=== PATIENT | male | born 1965 | race Caucasian/White ===

== ENCOUNTER 2016-05-10 04:51 | Observation (INO) | payer BC, MEDICARE ==
[2016-05-02 10:23] LABS: HEMOGLOBIN 16.3 g/dL (13.6-17.8)
[2016-05-02 10:24] LABS: HEMATOCRIT 47.8 % (40.0-51.0)
[2016-05-02 10:37] LABS: BUN (BLOOD UREA NITROGEN) 11 MG/DL (6-23); CALCIUM, SERUM 8.3 MG/DL (8.5-10.4); CHLORIDE, SERUM 102 MMOL/L (96-112); CO2 (CARBON DIOXIDE) 31 MMOL/L (24-34); CREATININE 1.22 MG/DL (0.70-1.30); GFR AFRICAN AMERICAN 79 ML/MIN (>=60); GFR NON AFRICAN AMERICAN 68 ML/MIN (>=60); GLUCOSE, SERUM 99 MG/DL (60-99); POTASSIUM, SERUM 4.3 MMOL/L (3.5-5.3); SODIUM, SERUM 141 MMOL/L (135-148)
--- NOTE | ~2016-05-10 | OP ---
Record Of Operation [facility] [address] [place]. [address] NAME: SYED MORA : 61 STATUS : DIS Toma PAT#: [id number] AGE: 50 ADM/REG DATE : 05/10/16 MR#: [id number] REPORT SERV DATE: 05/11/16 DICTATED BY: MAKAYLA ROSENBERG II DATE: 05/11/16 REPORT STATUS : Draft TRANSCRIBED BY: MODL DATE: 05/11/16 DATE OF PROCEDURE: 05/10/2016 PREOPERATIVE DIAGNOSES: 1. C3-C4, C4-C5 adjacent segment degeneration. 2. History of C5-C7 fusion. 3. Upper extremity radiculopathy. 4. Stenosis C3-C4, C4-C5. POSTOPERATIVE DIAGNOSES: 1. C3-C4, C4-C5 adjacent segment degeneration. 2. History of C5-C7 fusion. 3. Upper extremity radiculopathy. 4. Stenosis C3-C4, C4-C5. PROCEDURE: 1. C3-C4, C4-C5 anterior interbody arthrodesis. 2. Application of prosthetic devices C3-C4, C4-C5. 3. Anterior instrumentation, C3-C4, C4-C5. 4. Use of the microscope. 5. Use of bone marrow aspirate and allograft substitute. SURGEON: Makayla Rosenberg MD FLUIDS: 1700 mL LR. ESTIMATED BLOOD LOSS: 20 mL. DRAINS: One drain. COMPLICATIONS: None. ANTIBIOTIC: Preoperatively. IMPLANTS: Alphatec. PREOPERATIVE HISTORY: This is a very friendly gentleman who did very well following his ACDF. He is now having recurrent neck and arm pain. DESCRIPTION OF PROCEDURE: After informed consent was obtained, the patient was brought to the operating room at his request and general anesthesia achieved. He was placed in the supine position and the neck and iliac crest were prepped and draped in a sterile fashion. A 5 mL of bone marrow were aspirated followed by longitudinal incision. The interval was explored. The deep cervical fascia incised. The subperiosteal exposure was completed and the Bobbin Coil Winder retractor was placed. The Celina pins were placed followed by use of the microscope. Record Of Operation [facility] [address] [place]. [address] NAME: SYED MORA : 61 STATUS : DIS Toma PAT#: [id number] AGE: 50 ADM/REG DATE : 05/10/16 MR#: [id number] REPORT SERV DATE: 05/11/16 DICTATED BY: MAKAYLA ROSENBERG II DATE: 05/11/16 REPORT STATUS : Draft TRANSCRIBED BY: GAGAN DATE: 05/11/16 Under microscopic visualization, the diskectomy was performed. The endplates were prepared following the removal of the disk. The parallel endplates were created and the posterior vertebral body osteophytes removed followed by removal of the posterior longitudinal ligament. The canal and foramen were well decompressed. At this point, the prosthetic device was then trialed and chosen and placed at C3-C4. This contained allograft substitute and bone marrow aspirate. Excellent fit was obtained. Next, the similar technique was performed at C4-C5. The diskectomy was completed and the endplates prepared with the ganga, curettes, and the high-speed edel. The posterior vertebral body osteophytes were removed followed by removal of the posterior longitudinal ligament. The canal and foramen were well decompressed followed by placement of the prosthetic device at C4-C5. The Celina pins were removed and the anterior fixation device placed with two screws placed in the C3, C4, and C5. This was a separate plate and screw construct. The fluoroscopy now confirmed acceptable placement of the implants. A deep drain was placed secondary to mild cancellous bone bleeding. At this point, standard closure was performed. The patient was then extubated and transferred to PACU in stable condition. FLORA/GAGAN Makayla Rosenberg II, M.D. / [id number] CC: Nam Vences II, M.D. Sonya Johnson, M.D.
[~2016-05-10 04:51] MED LIST: ACET500CAP PO; AMB10 PO; ASA5GR PO; COZ50 PO; CYMBALTA30 PO; DEPAKOTEER PO; ENDOCET1 TA3 PO; FLOMAX4 PO; LIPITOR10 PO; LOP25 PO; LYRICA100 MG PO; LYRICA200 MG PO; NEUR100 PO; NITROSTAT0.4 MG SL; PERCOCET1 TA4 PO; V5 PO; ZOL100 PO
[2016-05-11] MEDS ORDERED: ROXICODONE15 MG PO (11:52)
[2016-05-11] MEDS ORDERED: MSCONT15 PO (11:53)
== END 2016-05-11 12:23 | disposition home or self-care (01) ==
LOC: SDC 04:51 → 1SO 13:18
PROVIDERS: Orthopaedic Surgery
PROC: 0RG20K0 Fusion of 2 or more Cervical Vertebral Joints with Nonautologous Tissue Substitute, Anterior Approach, Anterior Column, Open Approach (ICD-10-PCS; 2016-05-10)
PROC: 0RB30ZZ Excision of Cervical Vertebral Disc, Open Approach (ICD-10-PCS; 2016-05-10)
PROC: 079T3ZX Drainage of Bone Marrow, Percutaneous Approach, Diagnostic (ICD-10-PCS; 2016-05-10)
PROC: 0RG20A0 Fusion of 2 or more Cervical Vertebral Joints with Interbody Fusion Device, Anterior Approach, Anterior Column, Open Approach (ICD-10-PCS; principal; 2016-05-10 07:00)
PROC: 0RG20J0 Fusion of 2 or more Cervical Vertebral Joints with Synthetic Substitute, Anterior Approach, Anterior Column, Open Approach (ICD-10-PCS; 2016-05-10 07:00)
DX: M48.02 Spinal stenosis, cervical region (principal); M50.121 Cervical disc disorder at C4-C5 level with radiculopathy; F41.9 Anxiety disorder, unspecified; F32.9 Major depressive disorder, single episode, unspecified; K21.9 Gastro-esophageal reflux disease without esophagitis; I10 Essential (primary) hypertension; M06.9 Rheumatoid arthritis, unspecified; F17.210 Nicotine dependence, cigarettes, uncomplicated; J44.9 Chronic obstructive pulmonary disease, unspecified; G47.33 Obstructive sleep apnea (adult) (pediatric); G43.909 Migraine, unspecified, not intractable, without status migrainosus; Z88.1 Allergy status to other antibiotic agents; Z79.899 Other long term (current) drug therapy; Z98.1 Arthrodesis status; Z98.890 Other specified postprocedural states; Z83.3 Family history of diabetes mellitus; Z82.3 Family history of stroke; Z82.49 Family history of ischemic heart disease and other diseases of the circulatory system; Z88.5 Allergy status to narcotic agent; Z87.442 Personal history of urinary calculi
CPT/HCPCS: 80048; 82962; 85014; 85018; 87641; 88304; 88311; 93005; 96374; 96375; 96376; A9270-GY; C1713; G0378; J0690; J1170; J2250; J2405; J2710; J3010; J3370

== ENCOUNTER 2016-05-17 16:01 | Inpatient (IN) | payer BC, MEDICARE ==
--- NOTE | ~2016-05-17 | OP ---
Record Of Operation [facility] [address] [place] [address] NAME: SYED MORA : 61 STATUS : ADM IN [facility]#: [id number] AGE: 50 ADM/REG DATE : 05/17/16 MR#: [id number] REPORT SERV DATE: 05/20/16 DICTATED BY: MIRTA SOLIS DATE: 05/20/16 REPORT STATUS : Draft TRANSCRIBED BY: GAGAN DATE: 05/20/16 DATE OF PROCEDURE: 05/20/2016 REPORT TITLE: Bronchoscopy BODY AFTER REPORT TITLE: INDICATION FOR PROCEDURE: Question of endotracheal tube placement and the patient was nasally intubated. CONSENT: Emergent (question of airway stability). PREMEDICATION: None, was already on a propofol drip. PROCEDURE IN DETAIL: After being contacted by Respiratory Therapy for question of ET tube, tip above the vocal cords, a flexible fiberoptic bronchoscope was urgently brought to the bedside and advanced into the ET tube to confirm tip location. The trisha was clearly visualized. The tip was resecured and the patient was continued on the present vent support. His oxygen sat was 100% throughout the procedure and his family was updated afterwards by the nursing staff. All questions were answered. We will continue mechanical ventilation today with the plan of extubating Sunday morning if he remains clinically stable. JIMBO/GAGAN Mirta Solis MD / [id number] CC: Nam Vences II, M.D.
--- NOTE | ~2016-05-17 | CN ---
Consultation Report [facility] [address] [place]. [address] NAME: SYED MORA : 61 STATUS : ADM IN PAT#: [id number] AGE: 50 ADM/REG DATE : 05/17/16 MR#: [id number] REPORT SERV DATE: 05/18/16 DICTATED BY: DANIEL BRUNO DATE: 05/18/16 REPORT STATUS : Draft TRANSCRIBED BY: MODL DATE: 05/18/16 CONSULTATION DATE OF CONSULTATION: A 50-year-old white male admitted to the hospital on 05/17/2016, who complained of increased swelling in his neck and started having trouble swallowing. At the time, he apparently had no shortness of breath and no fever. He has status post anterior cervical neck fusion on 05/10/2016. Dr. Rosenberg performed a C3-C4 and C4-C5 anterior interbody arthrodesis, application of prosthetic devices at the same levels along with anterior instrumentation. A neck CT showed evidence of a very large postoperative fluid collection in a prevertebral soft tissue space extending from C3 through C6-C7, and extending along the right side of the thyroid cartilage and anterior to the right sternocleidomastoid to the anterior soft tissues of the neck just deep to the skin surface. The prevertebral component measures 5.6 x 2.5 x 4.7 cm. There is incidentally discovered centrilobular emphysema at lung apices. The patient was taken to the operating room today and nasally intubated due to the difficulty of airway. He was intubated through the left naris. He had drainage of this seroma/hematoma. In this could actually be visualized on the GlideScope during intubation procedure. Postoperatively, he is sedated still on the ventilator with nasal intubation and arterial blood gas is pending and chest x-ray is pending. REVIEW OF SYSTEMS: Unable to be obtained. PAST MEDICAL HISTORY: Emphysema, angina, depression. ALLERGIES: SULINDAC, JERRI INHIBITORS, MORPHINE. HOME MEDICATIONS: Reviewed. FAMILY HISTORY: Unknown. PHYSICAL EXAMINATION: VITAL SIGNS: Vitals per nursing flow sheet. GENERAL: Sedated, calm. HEENT: Normocephalic, atraumatic. Pupils are equal. NECK: STEPHANIE drain draining serosanguineous fluid, but there is visible neck swelling. HEART: Regular rate and rhythm. No murmurs. LUNGS: Clear anteriorly. No wheezes, rales, or rubs. GI: Soft, nontender, nondistended. : Lanza catheter in place. EXTREMITIES: No edema, cyanosis, or clubbing. SKIN: Intact without obvious rash. MUSCULOSKELETAL: Normal inspection. Consultation Report [facility] [id number] [address] NAME: SYED MORA : 61 STATUS : ADM IN PAT#: [id number] AGE: 50 ADM/REG DATE : 05/17/16 MR#: [id number] REPORT SERV DATE: 05/18/16 DICTATED BY: DANIEL BRUNO DATE: 05/18/16 REPORT STATUS : Draft TRANSCRIBED BY: GAGAN DATE: 05/18/16 LABORATORY DATA: Reviewed. ASSESSMENT AND PLAN: 1. Postoperative respiratory failure-airway protection. 2. Seroma/hematoma. 3. Status post anterior cervical disk fusion. 4. Emphysema. 5. Pain control. 6. Deep venous thrombosis/gastrointestinal prophylaxis. Currently, intubated nasally and on the ventilator. We will get arterial blood gas to see if any ventilator adjustments need to be done. Get a chest x-ray to confirm tube placement. The patient will be intubated probably for a couple of days until we ensure swelling has gone down. Consideration for IV steroids could be conceived. Consideration for repeat neck CT also could be conceived. Start bronchodilator protocol. DC the SUPERVISOR PACKING pump and put the patient on morphine as needed. The patient will be on SCDs and Protonix for DVT and GI prophylaxis. 31 minute of critical care time. CEP/MODL Daniel Bruno DO / [id number] CC: Nam Vences II, M.D.
--- NOTE | ~2016-05-17 | CN ---
Consultation Report [facility] [address] [place]. [address] NAME: SYED MORA : 61 STATUS : ADM IN PAT#: [id number] AGE: 50 ADM/REG DATE : 05/17/16 MR#: [id number] REPORT SERV DATE: 06/13/16 DICTATED BY: SUZY DAVIS DATE: 06/12/16 REPORT STATUS : Draft TRANSCRIBED BY: MODL DATE: 06/12/16 CONSULTATION DATE OF CONSULTATION: 06/12/2016 REASON FOR CONSULTATION: Consulted for elevated liver enzymes by Dr. Ascencio. IDENTIFYING DATA: 1. PCP Valeri Encarnacion M.D. 2. Orthopedist, Bob Rosenberg M.D. 3. Infectious Disease, Anthony Ascencio M.D. 4. Neurologist, Kwabena Lezama M.D. 5. Nozzle Worker, Bob Kline M.D. 6. Marine Pipefitter Helper, Chidi Crowe MD. 7. Urologist Kwabena Camara M.D. 8. Pain Management Sohail Garcia NP. HISTORY OF PRESENT ILLNESS: This is a pleasant 50-year-old, male, who is admitted to the hospital on 05/17/2016 who complained of increased swelling in his neck and started having difficulty swallowing. Apparently at that time, he did not have any shortness of breath or fever, and he was status post anterior cervical neck fusion on 05/10/[address] Rosenberg. During hospitalization, the patient required intubation and laryngoscopy by ENT for a retropharyngeal seroma and subcutaneous hematoma. Dr. Sumner with ENT described the patient as having bulging of the posterior pharyngeal wall. The patient was then extubated in the interim and reintubated postoperatively for which he had a culture that was collected and grew abundant MRSA and abundant Serratia. During his hospitalization and re-intubation, he had an x-ray that showed increase in infiltrates. Also on 05/24/2016, he started having high fevers up to 103.2 degrees. Infectious Disease, Dr. Anthony Ascencio was consulted for antibiotic management. The patient's culture showed pneumonia of the left lower lobe which grew out Stenotrophomonas maltophilia for which Dr. Ascencio placed patient on Fortaz for which he was sensitive. The patient has had a complicated course and after the evacuation of the retropharyngeal hematoma, he also developed dysphagia. He presently has had a bedside swallow eval which he was placed on mechanical soft and thin liquids per Speech Therapy. The hospitalist has been consulted in the interim of medication use and intubation with medications. The patient has shown elevated liver enzymes. The patient's history was obtained through careful interview with the patient coupled with review of [employer], [employer], cosmetic sales consultant's notes, and some old medical records. PAST MEDICAL HISTORY: 1. Angina. 2. Depression. Consultation Report [place] [address] [facility] [place]. [address] NAME: SYED MORA : 61 STATUS : ADM IN PAT#: [id number] AGE: 50 ADM/REG DATE : 05/17/16 MR#: [id number] REPORT SERV DATE: 06/13/16 DICTATED BY: SUZY DAVIS DATE: 06/12/16 REPORT STATUS : Draft TRANSCRIBED BY: GAGAN DATE: 06/12/16 3. Emphysema. 4. GERD. 5. Osteoarthritis. 6. Dysphagia due to an anterior cervical retropharyngeal seroma/hematoma. 7. COPD. 8. Insomnia. 9. Pulmonary nodules. 10.Migraines. 11.Polyps. 12.Hyperlipidemia. 13.Renal calculi. 14.Tremors. 15.Memory loss. 16.Anxiety. HOME MEDICATIONS: 1. Aspirin 1300 mg p.o. daily p.r.n. headache. 2. Valium 5 mg p.o. at bedtime. 3. Depakote 250 mg p.o. at bedtime. 4. Cymbalta 60 mg p.o. at bedtime. 5. MS Contin 15 mg p.o. every 12 hours p.r.n. 6. Nitrostat 0.4 mg sublingual p.r.n. chest pain. 7. Roxicodone 15 mg p.o. every 12 hours p.r.n. pain. 8. Lyrica 300 mg p.o. at bedtime. 9. Flomax 0.4 mg capsule p.o. at bedtime. 10.Lipitor 10 mg p.o. at bedtime. 11.Depo testosterone 200 mg p.o. every 14 days. 12.Ambien 10 mg p.o. at bedtime. ALLERGIES: TO: 1. MORPHINE. 2. JERRI INHIBITORS. 3. CIPRO. 4. LEVAQUIN. 5. SULINDAC. SOCIAL HISTORY: The patient was a previous smoker for around 30 years, quit in 2013. He lives in a single-level home. He has one stepdaughter. No use of alcohol or illicit drugs. Has a domestic partner. FAMILY HISTORY: Positive for coronary artery disease, diabetes and a CVA. 1. Father had a CVA and CABG surgery. 2. Nephew was diabetic. 3. Mother is alive and healthy. Consultation Report [place] [address] [place]. [address] NAME: SYED MORA : 61 STATUS : ADM IN [facility]#: [id number] AGE: 50 ADM/REG DATE : 05/17/16 MR#: [id number] REPORT SERV DATE: 06/13/16 DICTATED BY: SUZY DAVIS DATE: 06/12/16 REPORT STATUS : Draft TRANSCRIBED BY: GAGAN DATE: 06/12/16 SURGICAL HISTORY: 1. ACDF on 03/13/2014 and again patient is status post anterior cervical neck fusion on 05/10/2016. 2. Colonoscopy 2011. 3. Left foot surgery with pin in 2005. REVIEW OF SYSTEMS: Review of systems are negative other than what is in HPI. The patient is alert and oriented. No shortness of breath. No nausea or vomiting. No abdominal pain. No chest pain. No fever. No confusion or agitation. PHYSICAL EXAMINATION: VITAL SIGNS: From today blood pressure 145/68, respiratory rate 16, heart rate 78, temperature 98.4, O2 saturation 92% on 2 L nasal cannula. GENERAL: The patient is a 50-year-old, male, resting in bed in no acute distress. Very talkative. Communicative. NEURO: Head is atraumatic and normocephalic. He is alert and oriented x3. His cranial nerves 2-12 are grossly intact. His mood is pleasant and appropriate. NECK: Supple. Trachea is midline. The edges are well approximated to his surgical wound site. Neck veins are flat. No JVD noted. No obvious thyromegaly or lymphadenopathy. EENT: Sclerae are nonicteric. Pupils are equal, reactive to light. His nares are patent. Mucous membranes moist. Tongue is midline without deviation. Soft palate rises equally on phonation. CHEST: No pain with palpation. LUNGS: Clear to auscultation bilaterally. The patient has normal respiratory effort. No increased work of breathing with conversation. CARDIOVASCULAR: S1, S2 with no obvious murmurs, rubs, or gallops. On 06/05/2016, the patient's EKG showed normal sinus rhythm, rate of 98, presently heart rate is 78 and regular. ABDOMEN: Soft, nontender, with active bowel sounds. No palpable organomegaly. Last bowel movement was on 06/10/2016. EXTREMITIES: Normal distal pulses. No calf tenderness. No edema. SKIN: Warm and dry. No unusual rashes or lesions. Normal color and turgor. PSYCH: The patient is pleasant and cooperative. Appropriate mood and affect. He states he is anxious to be going home soon. LABORATORY DATA: Sodium 134, potassium 4.2, chloride 94, bicarb 28.9, BUN 15, creatinine 0.84, GFR 117, glucose 99, calcium 8.8, magnesium 2.2. Phosphorus 3.2, white blood cell 10.8, hemoglobin 12.1, hematocrit 36.5, platelets 446. Present LFTs; total bilirubin 0.4 previously noted is 0.9, alkaline phosphatase presently 157, previously 120. ALT presently 227, previously at 110. AST 146, previously at 80. Consultation Report [address] [place]. [address] NAME: SYED MORA : 61 STATUS : ADM IN [facility]#: [id number] AGE: 50 ADM/REG DATE : 05/17/16 MR#: [id number] REPORT SERV DATE: 06/13/16 DICTATED BY: SUZY DAVIS DATE: 06/12/16 REPORT STATUS : Draft TRANSCRIBED BY: MODEloy DATE: 06/12/16 His previous labs for LFTs were obtained on 06/09/2016, the present labs on 06/12/2016. ASSESSMENT AND PLAN: 1. Elevated liver enzymes. It is noted he did have a slight increase in his enzymes from 06/09/2016 to 06/12/2016. This gentleman has had a complex complicated hospitalization for where he had surgery for neck swelling and post cervical neck fusion. He was also intubated and sedated on the vent, weaned off and then reintubated. We are going to evaluate his medications. He is presently on antibiotics for pneumonia of the left lower lobe. We will obtain labs in the morning to follow up on his liver function as well as get a portable chest x-ray. We will actually consult GI to eval his liver enzymes. We feel that most likely his liver enzyme elevation has been medication induced during his hospitalization. 2. Pneumonia left lower lobe, followed by ID, Dr. Ascencio. The patiently presently is on Fortaz per ID for culture that grew out Stenotrophomonas maltophilia. 3. Dysphagia which is secondary to status post evacuation of the retropharyngeal hematoma. Noted. He had a bedside swallow eval per Speech today. He is able to eat mechanical soft with thin liquids per Speech. Dr. Ascencio suggest recheck per Speech Therapy before he is discharged from the hospital. 4. Hypertension. Aware. We will continue his present medications. His blood pressure is currently controlled at 145/68. He is on Catapres patch, Lopressor, and Cozaar. A.M. labs will be CMP, magnesium, CBC, BNP, phosphorus, liver function, and a portable chest x-ray. The hospitalist group would like to thank you for this consultation. The a.m. team will further evaluate with GI relating to elevated liver enzymes and please let us know if we can be of any further assistance. TAYLOR Suzy Davis NP / [id number] CC: Nam Vences II, M.D.
--- NOTE | ~2016-05-17 | OP ---
Record Of Operation [facility] [address] [place]. [address] NAME: SYED MORA : 61 STATUS : ADM IN PAT#: [id number] AGE: 50 ADM/REG DATE : 05/17/16 MR#: [id number] REPORT SERV DATE: 05/21/16 DICTATED BY: MAKAYLA ROSENBERG II DATE: 05/21/16 REPORT STATUS : Draft TRANSCRIBED BY: MODL DATE: 05/21/16 DATE OF PROCEDURE: 05/18/2016 PREOPERATIVE DIAGNOSIS: Dysphagia secondary to anterior cervical retropharyngeal seroma/hematoma. POSTOPERATIVE DIAGNOSIS: Dysphagia secondary to anterior cervical retropharyngeal seroma/hematoma. PROCEDURE: Evacuation of anterior cervical retropharyngeal cervical hematoma/seroma. SURGEON: Makayla Rosenberg M.D. FLUIDS: 1500 mL LR. ESTIMATED BLOOD LOSS: 15 mL. DRAINS: One drain. COMPLICATIONS: No complications. FINDINGS: A moderate-size hematoma/seroma. PREOPERATIVE HISTORY: This is a very friendly 50-year-old gentleman who was doing well the first several days and then began having increasing difficulty swallowing. He has had no airway issues but came to the emergency room. A CT scan did show a large fluid collection which was not consistent with abscess. His clinical symptoms are not consistent with abscess. However, given the size of the collection as well as the amount of difficulty swallowing, I felt surgical evacuation was indicated. DESCRIPTION OF PROCEDURE: After informed consent was obtained, the patient was brought to the operating room. After ENT had seen the patient, the anesthesiologist wanted ENT available should intubation issues arise. At this point, general anesthesia was achieved, and the patient was placed in the supine position, and his back was prepped and draped in a sterile fashion. The incision was now incised. There was some moderate hematoma noted subcutaneously. We then entered the retropharyngeal space. Again, there was moderate amount of seroma present. This was also evacuated followed by irrigation. We closely watched the area and did not identify any evidence of infection. There was no active bleeding noted. There was some mild weeping of the soft tissues. We ultimately were pleased with the evacuation and a deep drain placed. No derangement of the soft tissue structures was noted. At this point, standard closure was performed. The postoperative plan was for the patient to go to the ICU and remained intubated to allow his airway to improve from an edema standpoint. Record Of Operation [facility] [address] [place] [address] NAME: SYED MORA : 61 STATUS : ADM IN PAT#: [id number] AGE: 50 ADM/REG DATE : 05/17/16 MR#: [id number] REPORT SERV DATE: 05/21/16 DICTATED BY: MAKAYLA ROSENBERG II DATE: 05/21/16 REPORT STATUS : Draft TRANSCRIBED BY: GAGAN DATE: 05/21/16 FLORA/GAGAN Makayla Rosenberg II, M.D. / [id number]
--- NOTE | ~2016-05-17 | CN ---
Consultation Report [facility] [address] [place]. [address] NAME: SYED MORA : 61 STATUS : ADM IN PAT#: [id number] AGE: 50 ADM/REG DATE : 05/17/16 MR#: [id number] REPORT SERV DATE: 05/26/16 DICTATED BY: ANTHONY ROB DATE: 05/26/16 REPORT STATUS : Draft TRANSCRIBED BY: MODL DATE: 05/26/16 INFECTIOUS DISEASE CONSULT DATE OF CONSULTATION: REASON FOR CONSULT: Fever and antibiotic management. HISTORY OF PRESENT ILLNESS: A 50 years old white male with history of C5 to C7 arthrodesis, depression, and emphysema who had surgery on 05/10/2016. He had anterior arthrodesis from C3-C5 with allograft and bone marrow aspirate from the iliac graft. He had diskectomies and plate and screws placement. Around 05/13/2016, he started developing swelling of the neck and then problems with swallowing. He was admitted on 05/17/2016. According to the patient's partner, he did not have any fever. He had just little bit of cough and little white sputum production. Dr. Rosenberg, his surgeon, describes "minimum serous fluid drainage." The partner states the fluid looked clear with a little bit of blood. A CT scan without contrast showed prevertebral fluid and gas collection about 5.6 x 4.7 cm extended laterally to the right prevertebral soft tissues and anterior to the right sternocleidomastoid area. There was also some maxillary sinuses fluid. Dr. Rosenberg took him to OR. He required intubation, laryngoscopy by ENT. Dr. Rosenberg described retropharyngeal "seroma" and subcutaneous hematoma. There was no acute bleeding. Dr. Sumner with ENT described the bulging of the posterior pharyngeal wall, possibly from a hematoma. The patient received vancomycin and Decadron at surgery time. He was extubated and reintubated postop. There is a culture that sounds like was collected from nasotracheal tube that grew abundant MRSA and abundant Serratia. The Serratia was sensitive to gentamicin, tobramycin, amikacin, meropenem, Cipro, and Bactrim. The Gram stain showed many white blood cells, gram-positive cocci, gram-negative rods, and gram- positive rods. On 05/20/2016, the ET tube had to be readjusted by bronchoscopy. There is a comment from the guest services attendant that there are some foul-smelling nasal secretions. Some blood cultures were done, and he was started on vancomycin, got one dose of Rocephin, then Zosyn. A PICC line was placed too. A chest x-ray on 05/21/2016 showed some patchy infiltrates. On 05/22/2016, he was extubated but then had to be reintubated, and the chest x-ray showed some increase in infiltrates. He was given Levaquin and apparently caused body redness. I do not find mention in the patient care notes, however, Dr. Felipe witnessed that. He was then switched to vancomycin and meropenem that continued to this day. On 05/24/2016, he started having high fevers of 103.2, but the procalcitonin decreased from Consultation Report [address] [place]. [address] NAME: SYED MORA : 61 STATUS : ADM IN [facility]#: [id number] AGE: 50 ADM/REG DATE : 05/17/16 MR#: [id number] REPORT SERV DATE: 05/26/16 DICTATED BY: ANTHONY ROB DATE: 05/26/16 REPORT STATUS : Draft TRANSCRIBED BY: GAGAN DATE: 05/26/16 11 on the 05/20/2016 to 4 on the 05/24/2016. Blood cultures were done again and are negative. A sputum culture was collected from the tracheal tube and is growing sparse yeast and just one colony of gram-negative rods. He continued to have high fevers on 05/25/2016, and the temperature is down today. Also, he is on slightly less oxygen with FiO2 of 55%. Chest x-ray looks relatively stable with some possible bilateral infiltrates and some left lower lobe densities. Procalcitonin is down to 3, creatinine is 1.0, WBC 10, and hemoglobin 11. PAST MEDICAL HISTORY: As I mentioned plus depression. SOCIAL HISTORY: Quit smoking 3 years ago. He does not drink alcohol or use drugs. He has some form of construction job. He has no pets. FAMILY HISTORY: Heart disease. ALLERGIES: HIS PARTNER STATES THAT HE IS ALLERGIC TO CIPRO AND LEVAQUIN. HE TURNS RED. SULINDAC CAUSES HIVES, AND MORPHINE CAUSES ITCHING. MEDICATIONS: On admission; aspirin, Flomax, Lipitor, testosterone, Depo, and Ambien. Other medications apparently started more recently after the spine surgery included Valium at bedtime, Depakote at bedtime, MS Contin, p.r.n., Roxicodone, and Lyrica. FAMILY HISTORY: Heart disease. PHYSICAL EXAMINATION: GENERAL: On exam, he is intubated but he is awake. He can shake his head. HEENT: There is a little bit of mucus on the eyelids. I can see oral mucosa. He has some right anterior neck swelling. There is a drain with some serosanguineous fluid. He is able to move the neck. LUNGS: Actually pretty clear to auscultation. I do not hear wheezes or crackles. HEART: Distant sounds. Regular rhythm. ABDOMEN: Quiet little bit distended but compressible. He complains of tenderness to palpation. He has a Lanza catheter. SKIN: He has no skin rash or decubitus. EXTREMITIES: He moves his arms and feet. INVESTIGATIONS: As I mentioned above. ASSESSMENT AND PLAN: 1. Fevers, that might be better today. 2. Respiratory failure, on ventilator. 3. Recent fusion surgery of the cervical spine through an anterior approach complicated by prevertebral and neck hematoma. He had a surgery on the 05/18/2016 for I and D of Consultation Report [address] [place]. [address] NAME: SYED MORA : 61 STATUS : ADM IN [facility]#: [id number] AGE: 50 ADM/REG DATE : 05/17/16 MR#: [id number] REPORT SERV DATE: 05/26/16 DICTATED BY: ANTHONY ROB DATE: 05/26/16 REPORT STATUS : Draft TRANSCRIBED BY: MODL DATE: 05/26/16 this, but no cultures or cytology was sent. There is initial cultures done from NT tube that grew abundant MRSA and resistant Serratia. A tracheal aspirate culture two days ago while on broad-spectrum antibiotics is growing very little yeast and 1 colony of gram-negative rods. Differential diagnosis for fever would include pneumonia, possibly aspiration pneumonia, surgical site infection. He has some abdominal tenderness to palpation of unclear significance. He is at some risk of secondary fungal infection given broad-spectrum antibacterials. At this point, he is on vancomycin, meropenem that are appropriate. We will follow up the clinical picture, the culture results, the procalcitonin. We will request a culture from the neck drain fluid and a KUB x-ray to evaluate for some abdominal distention. I discussed with the patient's nurse and the patient's partner. ANIBAL/GAGAN Anthony Rob M.D. / [id number] CC: Nam Vences II, M.D.
--- NOTE | ~2016-05-17 | DS ---
Discharge Summary [facility] [address] [place]. [address] NAME: SYED MORA : 61 STATUS : DIS IN PAT#: [id number] AGE: 50 ADM/REG DATE : 05/17/16 MR#: [id number] REPORT SERV DATE: 06/27/16 DICTATED BY: MAKAYLA ROSENBERG II DATE: 06/26/16 REPORT STATUS : Draft TRANSCRIBED BY: GAGAN DATE: 06/26/16 Data Collection from hospitalization DISCHARGE DIAGNOSES: 1. Dysphagia secondary to anterior cervical retropharyngeal seroma/hematoma. 2. History of anterior cervical discectomy and fusion. 3. History of angina. 4. History of depression. 5. Tobacco use. 6. Degenerative disc disease. 7. Gastroesophageal reflux disease. 8. Emphysema. 9. Osteoarthritis. 10.Chronic obstructive pulmonary disease. 11.Insomnia. 12.Migraines. 13.Hyperlipidemia. 14.Tremors. 15.Anxiety. CONSULTATION: 1. Suzy Ac NP. 2. Anthony Ascencio M.D. 3. Daniel Bruno DO. 4. Kwabena Sumner M.D. PROCEDURES: 1. Evacuation of anterior cervical retropharyngeal cervical hematoma/seroma, 05/18/2016. 2. Flexible nasal endoscopy and tracheoscopy with biopsy and intubation, 05/18/2016. 3. Bronchoscopy, 05/20/2016. 4. Intubation via bronchoscopy, 05/22/2016. 5. CT scan of the neck without contrast, 05/17/2016. 6. CT scan of the neck without contrast, 05/27/2016. 7. CT scan of the chest without contrast, 05/27/2016. 8. Modified barium swallow study, 06/02/2016. 9. Duplex renal arterial venous study, 06/02/2016. 10.Modified barium swallow study, 06/05/2016. 11.Modified barium swallow study, 06/12/2016. DISCHARGE MEDICATIONS: Abilify 2 mg daily, Lipitor 10 mg at bedtime, Zyrtec 5 mg twice a day, Valium 5 mg at bedtime, Depakote ER 500 mg at bedtime, Cymbalta 60 mg at bedtime, Lamictal 50 mg daily, Cozaar as instructed, Lopressor 12.5 mg twice a day, MS Contin 15 mg every 12 hours as needed, Nitrostat 0.4 mg sublingually as needed, Roxicodone 15 mg every 2 hours as needed, Percocet 10/325 one tablet every six hours as needed, Lyrica 300 mg at bedtime, Flomax 0.4 mg at bedtime, Bactrim DS one tablet twice a day, Depakote-testosterone 200 mg every 14 days, Ambien 10 mg at bedtime. CONDITION ON DISCHARGE: Stable. Discharge Summary [place] [id number] [facility] [place] [address] NAME: SYED MORA : 61 STATUS : DIS IN PAT#: [id number] AGE: 50 ADM/REG DATE : 05/17/16 MR#: [id number] REPORT SERV DATE: 06/27/16 DICTATED BY: MAKAYLA RSOENBERG II DATE: 06/26/16 REPORT STATUS : Draft TRANSCRIBED BY: GAGAN DATE: 06/26/16 DISPOSITION: The patient was discharged home on an 1800-calorie diabetic diet with activities as instructed. He will follow up with me as instructed. He will follow up with Dr. Nadja Adan one week following discharge. He will follow up with Dr. Cruz Cornea 06/19/2016. He would follow up with Dr. Chidi Crowe on 08/07/2016. HOSPITAL COURSE: This is a 50-year-old man who is very well known to me. He had undergone ACDF the week prior to this admission. He was kept overnight and I saw him the following day. He was stable and comfortable and was discharged home. His drain was removed prior to discharge. He reports that approximately Sunday prior to admission he began to have increasing swelling. He did not think much until he began having trouble swallowing. He had no shortness of breath. CT scan of the neck without contrast showed a large hematoma and seroma. I disagreed with the radiology report which indicated abscess. There was no evidence of infection. The patient however would need evacuation of the hematoma secondary to it's size. He was having significant dysphagia. Fortunately, he was having no respiratory issues. The following day, the patient was seen by Dr. Kwabena Sumner. The patient has a significant history of anterior cervical discectomy and fusion and now had slow ooze over the past few days and had expansion of the neck. It was felt that he would benefit from evacuation of this. Dr. Sumner performed a flexible nasal endoscopy and tracheoscopy and biopsy and intubation. The patient then underwent the above-mentioned procedure by myself and had evacuation of the anterior cervical retropharyngeal cervical hematoma/seroma. He tolerated this well. There were no complications. Postoperatively, he was seen by Dr. Daniel Bruno. The patient had been intubated through the left naris, had undergone drainage of a seroma/hematoma. Postoperatively, he was still sedated on the ventilator with nasal intubation and arterial blood gas was pending. Chest x-ray was pending. Arterial blood gas was going to be checked to see if any ventilator adjustments need to be performed. Chest x-ray would be performed to confirm tube placement. It was felt that he would be intubated probably for a couple of days until we could ensure the swelling had gone down. Consideration for IV steroids could be conceived. Bronchodilator protocol would begin. The SKIDDER LOADER pump would be stopped and the patient would be placed on morphine as needed. He was going to be placed in SCDs and Protonix for DVT and GI prophylaxis. On postop day 1, his neck was soft. He was still sedated on the ventilator. Chest x-ray showed bilateral atelectasis. On the , Dr. Faith Dominguez was asked to evaluate the patient for question of endotracheal tube tip dislodgement. She performed bronchoscopy. The tube was resecured. A PICC line was inserted. On 05/22/2016, the neck was soft. We were hopeful he could be extubated later in the day. He was seen by Dr. Davy Felipe regarding emergent hypoxic respiratory failure. He performed intubation via bronchoscopy. The next day, Cardene and labetalol were continued. He was still on Procalamine. Vancomycin was continued. His chest x-ray did not look good according to the nurse. His temperature increased to 103. On the , an attempted extubation was going to be performed. His neck was soft. On the , he was seen by Dr. Anthony Ascencio regarding fever and antibiotic management. There was a culture that sounded like it was collected from the nasotracheal tube that grew abundant MRSA and abundant Serratia. On the , the patient had high fever of 103.2. Procalcitonin decreased from 11 on the to 4 on the . Blood cultures were performed and were negative. Discharge Summary [place] [address] [place]. [address] NAME: SYED MORA : 61 STATUS : DIS IN PAT#: [id number] AGE: 50 ADM/REG DATE : 05/17/16 MR#: [id number] REPORT SERV DATE: 06/27/16 DICTATED BY: MAKAYLA ROSENBERG II DATE: 06/26/16 REPORT STATUS : Draft TRANSCRIBED BY: GAGAN DATE: 06/26/16 Sputum culture collected from the tracheal tube was growing sparse yeast and just 1 colony of gram-negative rods. He continued to have high fevers on the . His temperature was down at the time of this consult. He was on slightly less oxygen with FiO2 at 55%. Chest x ray was relatively stable with some possible bilateral infiltrates and some left lower lobe density. The differential diagnosis for the fever would include pneumonia, possibly aspiration pneumonia, surgical site infection. He did have some abdominal tenderness to palpation of unclear significance. He was at some risk for secondary fungal infection given broad-spectrum antibacterials. At this point, he was on vancomycin and meropenem. He requested a culture from the neck drained fluid and a KUB x-ray to evaluate for some abdominal distention. On 05/27/2016, the patient was still intubated. He has failed weaning attempts. He had a temperature of 103 during the night. His neck had minimal edema. It was felt that he was okay for Dobhoff tube placement. CT scan of the neck without contrast was performed as well as a CT scan of the chest without contrast. White count was 10.9. On 05/28/2016, he was still on the ventilator. Dobhoff tube was then placed for nutrition. He had no erythema of the neck or significant edema. His T-max was 103. Zyvox and meropenem were continued. He did have a bowel movement. Respiratory therapy continued to attempt to wean the patient. The patient did seem more alert. There was no significant edema. HIV study was negative. On 05/31/2016, his incision was well approximated. There was no erythema. The patient does have bilateral pneumonia although there was some mild improvement in his bilateral infiltrates. We continued to have difficulty weaning the patient. Pulmonary Toilet was being provided. Speech-Language pathology performed a bedside swallow study. Aspiration precautions were in place. A modified barium swallow study was requested. On 06/02/2016, modified barium swallow study was performed. Aspiration precautions remained in place. He was able to remain off the ventilator on the . Tube feedings were being provided. The patient also underwent a duplex Doppler imaging color flow study. Blood cultures were negative. He was evaluated by Occupational and Physical Therapy. On 06/04/2016, he was afebrile. White count was 11.4. C. difficile study was negative. Blood cultures remained negative. Blood cell count had increased to 11.4. On the , another modified barium swallow study was performed. The patient had overt signs and symptoms of aspiration. Chest x-ray showed improvement of the bilateral infiltrates. White count increased to 23. On 06/06/2016, his temperature increased to 102.4. Chest x-ray showed new left lower lobe infiltrate. Line tip culture was negative. The next day, his white count was 19.7. He said he was feeling better. He did have a loose call. He had no more left-sided chest pain. He had no urinary symptoms. Chest x-ray did show increased left infiltrates. Blood cultures were negative. On 06/09/2016, he felt well. He reported very little neck pain. He was eager to get moving out to the floor. His incision was well approximated. There was no erythema or edema. He was afebrile. At this time, he did have some tachycardia. His antibiotic was going to be changed to Ceptaz when available. His culture was positive for Stenotroph. Diflucan was discontinued. On , he looked great. He was tolerating oral intake. He had passed Physical Therapy. White count was 10.5. The next day, he looked great. His neck was soft. Discharge Summary [address] [place]. [address] NAME: SYED MORA : 61 STATUS : DIS IN [facility]#: [id number] AGE: 50 ADM/REG DATE : 05/17/16 MR#: [id number] REPORT SERV DATE: 06/27/16 DICTATED BY: MAKAYLA ROSENBERG II DATE: 06/26/16 REPORT STATUS : Draft TRANSCRIBED BY: GAGAN DATE: 06/26/16 Discharge planning was performed. He said he felt well. He was walking without O2. Bedside swallow evaluation was performed. The patient had mild oropharyngeal dysphagia. He was seen by Suzy Ac regarding elevated liver enzymes. The patient's culture had shown pneumonia of the left lower lobe which grew out Stenotrophomonas maltophilia for which he was placed on Fortaz. He has had a very complicated course. He has developed dysphagia. He had been placed on mechanical soft and thin liquids. He had been found to have elevation of his liver enzymes. Labs were going to be obtained and we would follow up his liver function. It was felt that most likely his liver enzyme elevation had been medication- induced during the hospitalization. Blood pressure was currently controlled. He was on Catapres patch, Lopressor, and Cozaar. On 06/13/2016, he denied any chest pain, shortness of breath or abdominal pain. He had good oral intake. He denied any difficulty swallowing at this time. He wanted to go home. Enzymes were trending down. He was afebrile. He had no abdominal pain. Discharge instructions were given. Due to his improved and stable condition, he was discharged home with the above-stated instructions. Information collected by: Marjorie Coreas I submit the above information as my discharge summary. JACY/GAGAN Makayla Rosenberg II, M.D. / [id number] CC: Nam Vences II, M.D. Paul Cornea, M.D. David L Armstrong, M.D.
--- NOTE | ~2016-05-17 | OP ---
Record Of Operation [facility] [address] [place]. [address] NAME: SYED MORA : 61 STATUS : ADM IN PAT#: [id number] AGE: 50 ADM/REG DATE : 05/17/16 MR#: [id number] REPORT SERV DATE: 05/19/16 DICTATED BY: PETRA NICK. DATE: 05/19/16 REPORT STATUS : Draft TRANSCRIBED BY: GAGAN DATE: 05/19/16 DATE OF PROCEDURE: 05/18/2016 PREOPERATIVE DIAGNOSIS: Expanding hematoma in the neck. POSTOPERATIVE DIAGNOSIS: Retropharyngeal hematoma. OPERATIVE PROCEDURE PERFORMED: Flexible nasal endoscopy and tracheoscopy and biopsy and intubation. INDICATIONS AND SIGNIFICANT HISTORY: The patient is a 50-year-old male with significant history of anterior cervical diskectomy and fusion who has had a slow ooze over the last few days and has had expansion of the neck. He was felt to benefit from evacuation of this by his surgeon Dr. Rosenberg, and Anesthesia was asked to be present for airway assistance. OPERATIVE PROCEDURE AND FINDINGS: After informed consent was obtained from the patient, the patient underwent enough dilatation of the nostrils and was sedated with Precedex. Propofol was not used. The left naris was cannulated with a pediatric bronchoscope and was advanced into the nasopharynx and into the hypopharynx. There, a substantial hematoma was noted along the posterior pharyngeal wall with a bulge. However with flexible exam, the larynx was identified and glottic larynx was cannulated. Placement was visualized within the trachea. At this point, the endotracheal tube was advanced through the nose by Seldinger technique into the trachea and general anesthesia was commenced. The patient was then turned to Dr. Rosenberg where hematoma evacuation was planned. The patient tolerated my component well and will be left intubated while going to the intensive care unit. CAMILLE/GAGAN Petra Nick M.D. / [id number] CC: Nam Vences II, M.D.
--- NOTE | ~2016-05-17 | HP ---
History And Physical [place] [id number] [facility] [place]. [address] NAME: SYED MORA : 61 STATUS : ADM IN [facility]#: [id number] AGE: 50 ADM/REG DATE : 05/17/16 MR#: [id number] REPORT SERV DATE: 05/18/16 DICTATED BY: MAKAYLA ROSENBERG II DATE: 05/18/16 REPORT STATUS : Draft TRANSCRIBED BY: GAGAN DATE: 05/18/16 DATE OF ADMISSION: 05/17/2016 CHIEF COMPLAINT: Neck swelling. HISTORY OF PRESENT ILLNESS: A very friendly 50-year-old gentleman very well known to me, who underwent ACDF last week. He was kept overnight and I saw him the next day. He was stable and comfortable and discharged home. His drain was removed prior to discharge. He then reports, approximately Sunday, he began having increasing swelling. He did not think too much of it until he began having trouble swallowing. He has had no shortness of breath. He denies any fevers, chills, nausea, or vomiting. PAST MEDICAL HISTORY: History of ACDF and history of angina and depression. REVIEW OF SYSTEMS: I have reviewed and agree with it as it is reported on the ER triage sheet dated 05/17/2016 with the exception that he denies fever. MEDICATIONS: Please see the MAR. PHYSICAL EXAMINATION: GENERAL: Reveals a gentleman in no acute distress. He is awake, alert, and oriented. NECK: Distended with obvious edema. CHEST: Reveals no stridor on inspiration or expiration. His voice is normal with a mild amount of a "hot potato voice." ABDOMEN: Soft. NEUROLOGICAL: He is intact. The incision does not reveal any erythema. There is some minimal serous fluid draining from the area. IMAGING: CT scan shows a large hematoma and seroma. I disagree with the radiology report, which indicates abscess. IMPRESSION AND PLAN: A 50-year-old gentleman with a large cervical seroma with hematoma. There was no evidence of infection. The patient, however, needs evacuation of the hematoma secondary to his size. He is also having significant dysphagia. Fortunately, he is having no respiratory issues. I have discussed this case with Anesthesia. FLORA/GAGAN Makayla Rosenberg History And Physical [address] [address] NAME: SYED MORA : 61 STATUS : ADM IN PAT#: [id number] AGE: 50 ADM/REG DATE : 05/17/16 MR#: [id number] REPORT SERV DATE: 05/18/16 DICTATED BY: MAKAYLA ROSENBERG II DATE: 05/18/16 REPORT STATUS : Draft TRANSCRIBED BY: MODL DATE: 05/18/16 Nam JONAS / [id number] CC: Nam Vences II, M.D. Sonya Johnson, M.D.
--- NOTE | ~2016-05-17 | OP ---
Record Of Operation [facility] [address] [place]. [address] NAME: SYED MORA : 61 STATUS : ADM IN PAT#: [id number] AGE: 50 ADM/REG DATE : 05/17/16 MR#: [id number] REPORT SERV DATE: 05/22/16 DICTATED BY: NIRALI FELIPE DATE: 05/22/16 REPORT STATUS : Draft TRANSCRIBED BY: MODL DATE: 05/22/16 DATE OF PROCEDURE: 05/22/2016 TIME: 1515 hours. PROCEDURE: Intubation via bronchoscopy. INDICATION: Emergent for hypoxic respiratory failure. Explained to family and patient in detail. The patient was pre-oxygenated with 100% oxygen and monitored by blood pressure, EKG, and pulse oximetry. He was kept entirely in neutral position. Xylocaine aerosol given prior. Olympus bronchoscope introduced via the oropharynx between the vocal cords with a size 7.52 prior. The endotracheal tube was passed to 24 cm, seen to enter between cords. Confirmed above trisha by bronchoscopy. Good breath sounds bilaterally post. End-tidal CO2 confirmed. Chest x-ray ordered. The patient tolerated the procedure well. ALLEN/GAGAN Nirali Felipe M.D. / [id number] CC: Nam Vences II, M.D.
[~2016-05-17 16:01] MED LIST changes: +MSCONT15 PO; +ROXICODONE15 MG PO
[2016-05-17 21:20] LABS: BASOPHILS 0.5 %; BASOPHILS ABSOLUTE 0.03 10/3/uL (0.0-0.16); EOSINOPHILS 6.3 %; EOSINOPHILS ABSOLUTE 0.38 10/3/uL (0.0-0.53); ER CBC TAT 0 Hrs 09 Mins; HEMATOCRIT 44.5 % (40.0-51.0); HEMOGLOBIN 14.9 g/dL (13.6-17.8); IMMATURE GRANULOCYTES 0.3 %; IMMATURE GRANULOCYTES ABSOLUTE 0.02 10/3/uL (0.0-0.11); LYMPHOCYTES 40.5 %; LYMPHOCYTES ABSOLUTE 2.45 10/3/uL (0.67-4.30); MANUAL DIFF NO %; MEAN CORPUS HGB CONC 33.5 g/dL (32.0-36.0); MEAN CORPUSCULAR HEMOGLOB 28.4 pg (26.0-34.0); MEAN CORPUSCULAR VOLUME 84.8 fL (80-100); MEAN PLATELET VOLUME 8.8 fL (9.2-13.0); MONOCYTES 17.2 %; MONOCYTES ABSOLUTE 1.04 10/3/uL (0.21-1.20); NEUTROPHILS 35.2 %; NEUTROPHILS ABSOLUTE 2.13 10/3/uL (2.02-8.40); PLATELET COUNT 238 10/3/uL (150-400); RBC DISTRIBUTION WIDTH 12.7 % (12.0-16.0); RED CELL COUNT 5.25 10/6/uL (4.7-6.1); WHITE BLOOD CELLS 6.1 10/3/uL (4.5-10.5)
[2016-05-17 21:34] LABS: A/G RATIO 0.8 (0.7-1.9); ALBUMIN 3.3 G/DL (3.5-5.0); ALKALINE PHOSPHATASE 74 U/L (45-117); BUN (BLOOD UREA NITROGEN) 9 MG/DL (6-23); CALCIUM, SERUM 8.8 MG/DL (8.5-10.4); CHLORIDE, SERUM 97 MMOL/L (96-112); CO2 (CARBON DIOXIDE) 31 MMOL/L (24-34); CREATININE 1.21 MG/DL (0.70-1.30); GFR AFRICAN AMERICAN 79 ML/MIN (>=60); GFR NON AFRICAN AMERICAN 68 ML/MIN (>=60); GLOBULIN 4.3 G/DL (2.5-4.1); GLUCOSE, SERUM 91 MG/DL (60-99); SGOT(AST) 14 U/L (5-40); SGPT(ALT) 20 U/L (5-65); SODIUM, SERUM 136 MMOL/L (135-148); TOTAL BILIRUBIN 0.6 MG/DL (0-1.2); TOTAL PROTEIN 7.6 G/DL (6.0-8.5)
[2016-05-17] MEDS ORDERED: ASA5GR PO (22:33)
[2016-05-17] MEDS ORDERED: LIPITOR10 PO (22:34)
[2016-05-17] MEDS ORDERED: MSCONT15 PO (22:36)
[2016-05-17] MEDS ORDERED: V5 PO (22:37)
[2016-05-17] MEDS ORDERED: ROXICODONE15 MG PO (22:37)
[2016-05-17] MEDS ORDERED: DEPAK250ER PO (22:39)
[2016-05-17] MEDS ORDERED: CYMBALTA60 PO (22:39)
[2016-05-17] MEDS ORDERED: NITROSTAT0.4 MG SL (22:40)
[2016-05-17] MEDS ORDERED: FLOMAX4 PO (22:40)
[2016-05-17] MEDS ORDERED: LYRICA300 MG PO (22:40)
[2016-05-17] MEDS ORDERED: AMB10 PO (22:41)
[2016-05-17] MEDS ORDERED: DEPO-TESTOSTERONE PO (22:42)
[2016-05-18 14:23] LABS: ALLENS TEST Pos; BE (BASE EXCESS) 2.2 MEQ/L (0 +/- 2.5); CARBOXYHEMOGLOBIN 1.1 % (0-3); HCO3 (ACTUAL BICARBONATE) 28.5 MEQ/L (23-27); HEMOBLOGIN CONTENT 15.2 G/DL (14-18); INSTRUMENT SERIAL # 8083; METHEMOGLOBIN 0.4 % (0-3); MODE CMV; O2 CONTENT 20.6 VOL% (18-24); OPERATOR ID 35188; PCO2 (CO2 TENSION) 50 MMHG (35-45); PO2 (O2 TENSION) 97 MMHG (79-93); SAMPLE Arterial; TIDAL VOLUME 650 ML; pH 7.37 (7.37-7.43)
[2016-05-18 16:26] LABS: BASOPHILS 0.2 %; BASOPHILS ABSOLUTE 0.01 10/3/uL (0.0-0.16); EOSINOPHILS 0.2 %; EOSINOPHILS ABSOLUTE 0.01 10/3/uL (0.0-0.53); HEMOGLOBIN 15.2 g/dL (13.6-17.8); IMMATURE GRANULOCYTES 0.3 %; IMMATURE GRANULOCYTES ABSOLUTE 0.02 10/3/uL (0.0-0.11); LYMPHOCYTES 13.9 %; LYMPHOCYTES ABSOLUTE 0.85 10/3/uL (0.67-4.30); MEAN CORPUS HGB CONC 34.5 g/dL (32.0-36.0); MEAN CORPUSCULAR HEMOGLOB 28.9 pg (26.0-34.0); MEAN CORPUSCULAR VOLUME 83.7 fL (80-100); MEAN PLATELET VOLUME 8.4 fL (9.2-13.0); MONOCYTES 2.5 %; MONOCYTES ABSOLUTE 0.15 10/3/uL (0.21-1.20); NEUTROPHILS 82.9 %; NEUTROPHILS ABSOLUTE 5.06 10/3/uL (2.02-8.40); PLATELET COUNT 226 10/3/uL (150-400); RBC DISTRIBUTION WIDTH 12.2 % (12.0-16.0); RED CELL COUNT 5.26 10/6/uL (4.7-6.1); WHITE BLOOD CELLS 6.1 10/3/uL (4.5-10.5)
[2016-05-18 16:27] LABS: MANUAL DIFF NO %
[2016-05-18 16:38] LABS: BUN (BLOOD UREA NITROGEN) 12 MG/DL (6-23); CALCIUM, SERUM 8.4 MG/DL (8.5-10.4); CHLORIDE, SERUM 100 MMOL/L (96-112); CO2 (CARBON DIOXIDE) 28 MMOL/L (24-34); CREATININE 1.29 MG/DL (0.70-1.30); GFR AFRICAN AMERICAN 73 ML/MIN (>=60); GFR NON AFRICAN AMERICAN 63 ML/MIN (>=60); POTASSIUM, SERUM 4.8 MMOL/L (3.5-5.3); SODIUM, SERUM 138 MMOL/L (135-148)
[2016-05-18 16:39] LABS: GLUCOSE, SERUM 140 MG/DL (60-99)
[2016-05-18 16:59] LABS: BE (BASE EXCESS) 1.5 MEQ/L (0 +/- 2.5); CARBOXYHEMOGLOBIN 0.8 % (0-3); HCO3 (ACTUAL BICARBONATE) 26.8 MEQ/L (23-27); HEMOBLOGIN CONTENT 15.9 G/DL (14-18); INSTRUMENT SERIAL # 8083; METHEMOGLOBIN 0.2 % (0-3); MODE CMV; O2 CONTENT 21.3 VOL% (18-24); OPERATOR ID 35188; PCO2 (CO2 TENSION) 44 MMHG (35-45); PO2 (O2 TENSION) 81 MMHG (79-93); SAMPLE Arterial; TIDAL VOLUME 600 ML
[2016-05-18 17:00] LABS: ALLENS TEST Pos
[2016-05-19 04:08] LABS: BASOPHILS 0 %; EOSINOPHILS 0 %; HEMATOCRIT 44.9 % (40.0-51.0); HEMOGLOBIN 15.4 g/dL (13.6-17.8); IMMATURE GRANULOCYTES 0.2 %; IMMATURE GRANULOCYTES ABSOLUTE 0.01 10/3/uL (0.0-0.11); LYMPHOCYTES 18.3 %; LYMPHOCYTES ABSOLUTE 1.22 10/3/uL (0.67-4.30); MEAN CORPUS HGB CONC 34.3 g/dL (32.0-36.0); MEAN CORPUSCULAR HEMOGLOB 28.6 pg (26.0-34.0); MEAN CORPUSCULAR VOLUME 83.5 fL (80-100); MEAN PLATELET VOLUME 8.6 fL (9.2-13.0); MONOCYTES 2.9 %; MONOCYTES ABSOLUTE 0.19 10/3/uL (0.21-1.20); NEUTROPHILS 78.6 %; NEUTROPHILS ABSOLUTE 5.24 10/3/uL (2.02-8.40); PLATELET COUNT 256 10/3/uL (150-400); RBC DISTRIBUTION WIDTH 12.3 % (12.0-16.0); RED CELL COUNT 5.38 10/6/uL (4.7-6.1); WHITE BLOOD CELLS 6.7 10/3/uL (4.5-10.5)
[2016-05-19 04:10] LABS: MANUAL DIFF NO %
[2016-05-19 04:20] LABS: BUN (BLOOD UREA NITROGEN) 14 MG/DL (6-23); CALCIUM, SERUM 8.4 MG/DL (8.5-10.4); CHLORIDE, SERUM 103 MMOL/L (96-112); CO2 (CARBON DIOXIDE) 26 MMOL/L (24-34); GFR AFRICAN AMERICAN 89 ML/MIN (>=60); GFR NON AFRICAN AMERICAN 77 ML/MIN (>=60); GLUCOSE, SERUM 160 MG/DL (60-99); PHOSPHORUS, SERUM 2.8 MG/DL (2.5-4.5); POTASSIUM, SERUM 4.2 MMOL/L (3.5-5.3); SODIUM, SERUM 138 MMOL/L (135-148)
[2016-05-20 04:34] LABS: BASOPHILS 0.1 %; BASOPHILS ABSOLUTE 0.01 10/3/uL (0.0-0.16); EOSINOPHILS 0 %; HEMATOCRIT 42.5 % (40.0-51.0); IMMATURE GRANULOCYTES 0.1 %; IMMATURE GRANULOCYTES ABSOLUTE 0.01 10/3/uL (0.0-0.11); LYMPHOCYTES 11.3 %; LYMPHOCYTES ABSOLUTE 1.01 10/3/uL (0.67-4.30); MEAN CORPUS HGB CONC 32.9 g/dL (32.0-36.0); MEAN CORPUSCULAR HEMOGLOB 27.8 pg (26.0-34.0); MEAN CORPUSCULAR VOLUME 84.5 fL (80-100); MEAN PLATELET VOLUME 8.9 fL (9.2-13.0); MONOCYTES 5.5 %; MONOCYTES ABSOLUTE 0.49 10/3/uL (0.21-1.20); NEUTROPHILS ABSOLUTE 7.42 10/3/uL (2.02-8.40); PLATELET COUNT 210 10/3/uL (150-400); RED CELL COUNT 5.03 10/6/uL (4.7-6.1); WHITE BLOOD CELLS 8.9 10/3/uL (4.5-10.5)
[2016-05-20 04:35] LABS: MANUAL DIFF NO %
[2016-05-20 04:46] LABS: CHLORIDE, SERUM 107 MMOL/L (96-112); CO2 (CARBON DIOXIDE) 22 MMOL/L (24-34); GFR AFRICAN AMERICAN 61 ML/MIN (>=60); GFR NON AFRICAN AMERICAN 53 ML/MIN (>=60); GLUCOSE, SERUM 140 MG/DL (60-99); PHOSPHORUS, SERUM 3.1 MG/DL (2.5-4.5); POTASSIUM, SERUM 3.9 MMOL/L (3.5-5.3); SODIUM, SERUM 143 MMOL/L (135-148)
[2016-05-20 04:47] LABS: ALBUMIN 2.2 G/DL (3.5-5.0); BUN (BLOOD UREA NITROGEN) 25 MG/DL (6-23)
[2016-05-20 08:31] LABS: PROCALCITONIN 11.13 ng/mL (<0.5)
[2016-05-20 14:19] LABS: ASCORBIC ACID (UR NOT ORDER) NEG (NEG); BILIRUBIN, URINE NEGATIVE (NEG); KETONE, URINE NEGATIVE (NEG); LEUKOCYTE ESTERASE(NOT OR NEG (NEG); WBC (NOT ORDERED) (RFLEX) 2 (0-5)
[2016-05-21 04:43] LABS: BASOPHILS 0.2 %; BASOPHILS ABSOLUTE 0.02 10/3/uL (0.0-0.16); EOSINOPHILS 1.1 %; EOSINOPHILS ABSOLUTE 0.11 10/3/uL (0.0-0.53); HEMATOCRIT 39.2 % (40.0-51.0); IMMATURE GRANULOCYTES 0.5 %; IMMATURE GRANULOCYTES ABSOLUTE 0.05 10/3/uL (0.0-0.11); LYMPHOCYTES 9.4 %; LYMPHOCYTES ABSOLUTE 0.91 10/3/uL (0.67-4.30); MEAN CORPUS HGB CONC 33.2 g/dL (32.0-36.0); MEAN CORPUSCULAR HEMOGLOB 28.4 pg (26.0-34.0); MEAN CORPUSCULAR VOLUME 85.8 fL (80-100); MEAN PLATELET VOLUME 8.7 fL (9.2-13.0); MONOCYTES 3.5 %; MONOCYTES ABSOLUTE 0.34 10/3/uL (0.21-1.20); NEUTROPHILS 85.3 %; NEUTROPHILS ABSOLUTE 8.23 10/3/uL (2.02-8.40); PLATELET COUNT 204 10/3/uL (150-400); RBC DISTRIBUTION WIDTH 13.1 % (12.0-16.0); RED CELL COUNT 4.57 10/6/uL (4.7-6.1); WHITE BLOOD CELLS 9.7 10/3/uL (4.5-10.5)
[2016-05-21 04:45] LABS: MANUAL DIFF NO %
[2016-05-21 04:57] LABS: CHLORIDE, SERUM 105 MMOL/L (96-112); CO2 (CARBON DIOXIDE) 25 MMOL/L (24-34); CREATININE 1.09 MG/DL (0.70-1.30); GFR AFRICAN AMERICAN 90 ML/MIN (>=60); GFR NON AFRICAN AMERICAN 78 ML/MIN (>=60); GLUCOSE, SERUM 149 MG/DL (60-99); PHOSPHORUS, SERUM 2.5 MG/DL (2.5-4.5); POTASSIUM, SERUM 3.7 MMOL/L (3.5-5.3); SODIUM, SERUM 141 MMOL/L (135-148)
[2016-05-21 04:58] LABS: BUN (BLOOD UREA NITROGEN) 20 MG/DL (6-23)
[2016-05-22 04:54] LABS: BASOPHILS 0.1 %; BASOPHILS ABSOLUTE 0.01 10/3/uL (0.0-0.16); EOSINOPHILS 2.2 %; EOSINOPHILS ABSOLUTE 0.21 10/3/uL (0.0-0.53); HEMATOCRIT 38.7 % (40.0-51.0); HEMOGLOBIN 12.8 g/dL (13.6-17.8); IMMATURE GRANULOCYTES 0.3 %; IMMATURE GRANULOCYTES ABSOLUTE 0.03 10/3/uL (0.0-0.11); LYMPHOCYTES 8.1 %; LYMPHOCYTES ABSOLUTE 0.76 10/3/uL (0.67-4.30); MANUAL DIFF NO %; MEAN CORPUS HGB CONC 33.1 g/dL (32.0-36.0); MEAN CORPUSCULAR HEMOGLOB 27.7 pg (26.0-34.0); MEAN CORPUSCULAR VOLUME 83.8 fL (80-100); MEAN PLATELET VOLUME 9.2 fL (9.2-13.0); MONOCYTES 6.3 %; MONOCYTES ABSOLUTE 0.59 10/3/uL (0.21-1.20); NEUTROPHILS ABSOLUTE 7.78 10/3/uL (2.02-8.40); PLATELET COUNT 238 10/3/uL (150-400); RBC DISTRIBUTION WIDTH 13.4 % (12.0-16.0); RED CELL COUNT 4.62 10/6/uL (4.7-6.1); WHITE BLOOD CELLS 9.4 10/3/uL (4.5-10.5)
[2016-05-22 05:19] LABS: BUN (BLOOD UREA NITROGEN) 20 MG/DL (6-23); CALCIUM, SERUM 8.4 MG/DL (8.5-10.4); CHLORIDE, SERUM 104 MMOL/L (96-112); CO2 (CARBON DIOXIDE) 25 MMOL/L (24-34); CREATININE 1.08 MG/DL (0.70-1.30); GFR AFRICAN AMERICAN 91 ML/MIN (>=60); GFR NON AFRICAN AMERICAN 78 ML/MIN (>=60); POTASSIUM, SERUM 3.6 MMOL/L (3.5-5.3); SODIUM, SERUM 141 MMOL/L (135-148)
[2016-05-22 05:23] LABS: GLUCOSE, SERUM 115 MG/DL (60-99)
[2016-05-22 11:41] LABS: BE (BASE EXCESS) 0.6 MEQ/L (0 +/- 2.5); HCO3 (ACTUAL BICARBONATE) 22.7 MEQ/L (23-27); INSTRUMENT SERIAL # 8083; PCO2 (CO2 TENSION) 30 MMHG (35-45); PO2 (O2 TENSION) 53 MMHG (79-93)
[2016-05-22 11:42] LABS: ALLENS TEST Pos; CARBOXYHEMOGLOBIN 0.9 % (0-3); DEVICE HFNC; HEMOBLOGIN CONTENT 15.6 G/DL (14-18); METHEMOGLOBIN 0.2 % (0-3); O2 CONTENT 19.3 VOL% (18-24); OPERATOR ID 13715; SAMPLE Arterial
[2016-05-22 17:20] LABS: ALLENS TEST Pos; BE (BASE EXCESS) -1.7 MEQ/L (0 +/- 2.5); CARBOXYHEMOGLOBIN 0.6 % (0-3); HCO3 (ACTUAL BICARBONATE) 24.9 MEQ/L (23-27); HEMOBLOGIN CONTENT 14.5 G/DL (14-18); INSTRUMENT SERIAL # 8083; METHEMOGLOBIN 0.4 % (0-3); MODE CMV; O2 CONTENT 18.1 VOL% (18-24); OPERATOR ID 13715; PCO2 (CO2 TENSION) 49 MMHG (35-45); PO2 (O2 TENSION) 64 MMHG (79-93); SAMPLE Arterial; TIDAL VOLUME 400 ML; pH 7.32 (7.37-7.43)
[2016-05-23 06:40] LABS: BASOPHILS 0.3 %; BASOPHILS ABSOLUTE 0.02 10/3/uL (0.0-0.16); EOSINOPHILS 1.6 %; EOSINOPHILS ABSOLUTE 0.12 10/3/uL (0.0-0.53); HEMATOCRIT 41.3 % (40.0-51.0); HEMOGLOBIN 13.6 g/dL (13.6-17.8); IMMATURE GRANULOCYTES 0.7 %; IMMATURE GRANULOCYTES ABSOLUTE 0.05 10/3/uL (0.0-0.11); LYMPHOCYTES 12.1 %; LYMPHOCYTES ABSOLUTE 0.89 10/3/uL (0.67-4.30); MANUAL DIFF NO %; MEAN CORPUS HGB CONC 32.9 g/dL (32.0-36.0); MEAN CORPUSCULAR HEMOGLOB 28.2 pg (26.0-34.0); MEAN CORPUSCULAR VOLUME 85.7 fL (80-100); MEAN PLATELET VOLUME 8.9 fL (9.2-13.0); MONOCYTES 10.5 %; MONOCYTES ABSOLUTE 0.77 10/3/uL (0.21-1.20); NEUTROPHILS 74.8 %; NEUTROPHILS ABSOLUTE 5.49 10/3/uL (2.02-8.40); PLATELET COUNT 199 10/3/uL (150-400); RBC DISTRIBUTION WIDTH 13.6 % (12.0-16.0); RED CELL COUNT 4.82 10/6/uL (4.7-6.1); WHITE BLOOD CELLS 7.3 10/3/uL (4.5-10.5)
[2016-05-23 07:01] LABS: CALCIUM, SERUM 8.3 MG/DL (8.5-10.4); CHLORIDE, SERUM 107 MMOL/L (96-112); CO2 (CARBON DIOXIDE) 25 MMOL/L (24-34); CREATININE 1.11 MG/DL (0.70-1.30); GFR AFRICAN AMERICAN 88 ML/MIN (>=60); GFR NON AFRICAN AMERICAN 76 ML/MIN (>=60); GLUCOSE, SERUM 124 MG/DL (60-99); POTASSIUM, SERUM 4.2 MMOL/L (3.5-5.3); SODIUM, SERUM 142 MMOL/L (135-148); VANCOMYCIN TROUGH 10.1 MCG/ML (10.0-20.0)
[2016-05-23 07:02] LABS: BUN (BLOOD UREA NITROGEN) 30 MG/DL (6-23)
[2016-05-23 23:27] LABS: ALLENS TEST Pos; BE (BASE EXCESS) 1.2 MEQ/L (0 +/- 2.5); CARBOXYHEMOGLOBIN 0.2 % (0-3); HEMOBLOGIN CONTENT 12.9 G/DL (14-18); INSTRUMENT SERIAL # 8083; METHEMOGLOBIN 0.2 % (0-3); MODE CMV; O2 CONTENT 16.7 VOL% (18-24); OPERATOR ID 334499; PCO2 (CO2 TENSION) 37 MMHG (35-45); PO2 (O2 TENSION) 63 MMHG (79-93); SAMPLE Arterial; TIDAL VOLUME 400 ML; pH 7.45 (7.37-7.43)
[2016-05-24 04:21] LABS: BASOPHILS 0.4 %; BASOPHILS ABSOLUTE 0.03 10/3/uL (0.0-0.16); EOSINOPHILS 2.9 %; EOSINOPHILS ABSOLUTE 0.22 10/3/uL (0.0-0.53); HEMOGLOBIN 12.1 g/dL (13.6-17.8); IMMATURE GRANULOCYTES ABSOLUTE 0.08 10/3/uL (0.0-0.11); LYMPHOCYTES 14.3 %; MEAN CORPUS HGB CONC 31.8 g/dL (32.0-36.0); MEAN CORPUSCULAR HEMOGLOB 27.6 pg (26.0-34.0); MEAN CORPUSCULAR VOLUME 86.6 fL (80-100); MEAN PLATELET VOLUME 9.1 fL (9.2-13.0); MONOCYTES 13.2 %; MONOCYTES ABSOLUTE 1.02 10/3/uL (0.21-1.20); NEUTROPHILS 68.2 %; NEUTROPHILS ABSOLUTE 5.26 10/3/uL (2.02-8.40); PLATELET COUNT 233 10/3/uL (150-400); RBC DISTRIBUTION WIDTH 13.9 % (12.0-16.0); RED CELL COUNT 4.39 10/6/uL (4.7-6.1); WHITE BLOOD CELLS 7.7 10/3/uL (4.5-10.5)
[2016-05-24 04:23] LABS: MANUAL DIFF NO %
[2016-05-24 04:37] LABS: A/G RATIO 0.4 (0.7-1.9); ALBUMIN 1.8 G/DL (3.5-5.0); CALCIUM, SERUM 8.6 MG/DL (8.5-10.4); CHLORIDE, SERUM 108 MMOL/L (96-112); CO2 (CARBON DIOXIDE) 28 MMOL/L (24-34); CREATININE 1.05 MG/DL (0.70-1.30); GFR AFRICAN AMERICAN 94 ML/MIN (>=60); GFR NON AFRICAN AMERICAN 81 ML/MIN (>=60); GLOBULIN 4.4 G/DL (2.5-4.1); GLUCOSE, SERUM 119 MG/DL (60-99); PHOSPHORUS, SERUM 2.5 MG/DL (2.5-4.5); SGOT(AST) 43 U/L (5-40); SGPT(ALT) 25 U/L (5-65); SODIUM, SERUM 144 MMOL/L (135-148); TOTAL BILIRUBIN 0.7 MG/DL (0-1.2); TOTAL PROTEIN 6.2 G/DL (6.0-8.5)
[2016-05-24 04:42] LABS: ALKALINE PHOSPHATASE 93 U/L (45-117); BUN (BLOOD UREA NITROGEN) 25 MG/DL (6-23)
[2016-05-24 04:47] LABS: ALLENS TEST Pos; BE (BASE EXCESS) 0.9 MEQ/L (0 +/- 2.5); CARBOXYHEMOGLOBIN 0.8 % (0-3); HCO3 (ACTUAL BICARBONATE) 25.4 MEQ/L (23-27); HEMOBLOGIN CONTENT 15.5 G/DL (14-18); INSTRUMENT SERIAL # 8083; METHEMOGLOBIN 0.3 % (0-3); MODE CMV; O2 CONTENT 20.4 VOL% (18-24); OPERATOR ID 30013; PCO2 (CO2 TENSION) 40 MMHG (35-45); PO2 (O2 TENSION) 71 MMHG (79-93); SAMPLE Arterial; TIDAL VOLUME 400 ML; pH 7.42 (7.37-7.43)
[2016-05-24 17:45] LABS: PROCALCITONIN 4.61 ng/mL (<0.5)
[2016-05-24 18:10] LABS: ASCORBIC ACID (UR NOT ORDER) NEG (NEG); BILIRUBIN, URINE NEGATIVE (NEG); KETONE, URINE NEGATIVE (NEG); LEUKOCYTE ESTERASE(NOT OR NEG (NEG); WBC (NOT ORDERED) (RFLEX) 3 (0-5)
[2016-05-24 18:55] LABS: TIME 24 h (()); VOLUME 2000 mL (())
[2016-05-25 04:01] LABS: ALLENS TEST Pos; BE (BASE EXCESS) 0.5 MEQ/L (0 +/- 2.5); CARBOXYHEMOGLOBIN 0.6 % (0-3); HCO3 (ACTUAL BICARBONATE) 24.7 MEQ/L (23-27); HEMOBLOGIN CONTENT 12.6 G/DL (14-18); INSTRUMENT SERIAL # 8083; METHEMOGLOBIN 0.3 % (0-3); MODE CMV; O2 CONTENT 16.2 VOL% (18-24); OPERATOR ID 23712; PCO2 (CO2 TENSION) 38 MMHG (35-45); PO2 (O2 TENSION) 65 MMHG (79-93); SAMPLE Arterial; TIDAL VOLUME 400 ML; pH 7.43 (7.37-7.43)
[2016-05-25 05:10] LABS: BUN (BLOOD UREA NITROGEN) 28 MG/DL (6-23); CHLORIDE, SERUM 109 MMOL/L (96-112); CO2 (CARBON DIOXIDE) 25 MMOL/L (24-34); CREATININE 1.02 MG/DL (0.70-1.30); GFR AFRICAN AMERICAN 97 ML/MIN (>=60); GFR NON AFRICAN AMERICAN 84 ML/MIN (>=60); GLUCOSE, SERUM 124 MG/DL (60-99); POTASSIUM, SERUM 4.1 MMOL/L (3.5-5.3); SODIUM, SERUM 143 MMOL/L (135-148)
[2016-05-25 05:17] LABS: HEMATOCRIT 36.3 % (40.0-51.0); HEMOGLOBIN 11.8 g/dL (13.6-17.8); MEAN CORPUS HGB CONC 32.5 g/dL (32.0-36.0); MEAN CORPUSCULAR HEMOGLOB 28.1 pg (26.0-34.0); MEAN CORPUSCULAR VOLUME 86.4 fL (80-100); NUCLEATED RED BLOOD CELLS 0.2 /100WBC (0-0); PLATELET COUNT 232 10/3/uL (150-400); RBC DISTRIBUTION WIDTH 13.7 % (12.0-16.0); WHITE BLOOD CELLS 10.3 10/3/uL (4.5-10.5)
[2016-05-25 05:33] LABS: MANUAL DIFF YES %
[2016-05-25 06:14] LABS: BAND NEUTROPHILS 1 %; LYMPHOCYTES 15 %; LYMPHOCYTES ABSOLUTE (CALC) 1.55 10/3/uL (0.67-4.30); MONOCYTES 5 %; MONOCYTES ABSOLUTE (CALC) 0.52 10/3/uL (0.21-1.20); NEUTROPHILS ABSOLUTE (CALC) 8.24 10/3/uL (2.02-8.40); PLATELET ESTIMATE ADQ (ADEQUATE); RBC MORPHOLOGY NORM (NORMAL); SEGMENTED NEUTROPHIL (0) 79 %; TOTAL NUCLEATED CELLS 100
[2016-05-26 04:08] LABS: BASOPHILS 0.2 %; BASOPHILS ABSOLUTE 0.02 10/3/uL (0.0-0.16); EOSINOPHILS 2.2 %; EOSINOPHILS ABSOLUTE 0.22 10/3/uL (0.0-0.53); HEMATOCRIT 36.3 % (40.0-51.0); HEMOGLOBIN 11.7 g/dL (13.6-17.8); IMMATURE GRANULOCYTES 0.9 %; IMMATURE GRANULOCYTES ABSOLUTE 0.09 10/3/uL (0.0-0.11); LYMPHOCYTES 15.2 %; LYMPHOCYTES ABSOLUTE 1.53 10/3/uL (0.67-4.30); MEAN CORPUS HGB CONC 32.2 g/dL (32.0-36.0); MEAN CORPUSCULAR HEMOGLOB 27.1 pg (26.0-34.0); MEAN CORPUSCULAR VOLUME 84.2 fL (80-100); MEAN PLATELET VOLUME 9.2 fL (9.2-13.0); MONOCYTES 6.5 %; MONOCYTES ABSOLUTE 0.65 10/3/uL (0.21-1.20); NEUTROPHILS ABSOLUTE 7.56 10/3/uL (2.02-8.40); PLATELET COUNT 278 10/3/uL (150-400); RBC DISTRIBUTION WIDTH 13.8 % (12.0-16.0); RED CELL COUNT 4.31 10/6/uL (4.7-6.1); WHITE BLOOD CELLS 10.1 10/3/uL (4.5-10.5)
[2016-05-26 04:09] LABS: MANUAL DIFF NO %
[2016-05-26 04:24] LABS: BUN (BLOOD UREA NITROGEN) 28 MG/DL (6-23); CHLORIDE, SERUM 106 MMOL/L (96-112); CO2 (CARBON DIOXIDE) 27 MMOL/L (24-34); CREATININE 1.05 MG/DL (0.70-1.30); GFR AFRICAN AMERICAN 94 ML/MIN (>=60); GFR NON AFRICAN AMERICAN 81 ML/MIN (>=60); GLUCOSE, SERUM 124 MG/DL (60-99); POTASSIUM, SERUM 3.5 MMOL/L (3.5-5.3); SODIUM, SERUM 143 MMOL/L (135-148)
[2016-05-26 08:22] LABS: PROCALCITONIN 3.02 ng/mL (<0.5)
[2016-05-26 18:46] LABS: DOPAMINE [CALC] 146 ug/24h (88-420); EPINEPHRINE [CALC] <10 ug/24h (2-24); NOREPINEPHRINE [CALC] 26 ug/24h (12-86); TOTAL FREE CATECHOLAMINES 36 ug/24h (14-110)
[2016-05-27 04:07] LABS: BASOPHILS 0.4 %; BASOPHILS ABSOLUTE 0.04 10/3/uL (0.0-0.16); EOSINOPHILS 2.8 %; HEMATOCRIT 35.9 % (40.0-51.0); HEMOGLOBIN 11.8 g/dL (13.6-17.8); IMMATURE GRANULOCYTES 0.9 %; LYMPHOCYTES 10.2 %; LYMPHOCYTES ABSOLUTE 1.11 10/3/uL (0.67-4.30); MEAN CORPUS HGB CONC 32.9 g/dL (32.0-36.0); MEAN CORPUSCULAR HEMOGLOB 27.6 pg (26.0-34.0); MEAN CORPUSCULAR VOLUME 84.1 fL (80-100); MEAN PLATELET VOLUME 9.1 fL (9.2-13.0); MONOCYTES 5.3 %; MONOCYTES ABSOLUTE 0.58 10/3/uL (0.21-1.20); NEUTROPHILS 80.4 %; NEUTROPHILS ABSOLUTE 8.75 10/3/uL (2.02-8.40); PLATELET COUNT 307 10/3/uL (150-400); RED CELL COUNT 4.27 10/6/uL (4.7-6.1); WHITE BLOOD CELLS 10.9 10/3/uL (4.5-10.5)
[2016-05-27 04:08] LABS: MANUAL DIFF NO %
[2016-05-27 04:19] LABS: BE (BASE EXCESS) -0.7 MEQ/L (0 +/- 2.5); HCO3 (ACTUAL BICARBONATE) 23.1 MEQ/L (23-27); INSTRUMENT SERIAL # 35151; PCO2 (CO2 TENSION) 36 MMHG (35-45); PO2 (O2 TENSION) 67 MMHG (79-93); pH 7.43 (7.37-7.43)
[2016-05-27 04:20] LABS: ALLENS TEST Pos; CARBOXYHEMOGLOBIN 0.5 % (0-3); METHEMOGLOBIN 0.5 % (0-3); MODE CMV; O2 CONTENT 20.7 VOL% (18-24); OPERATOR ID 31061; SAMPLE Arterial; TIDAL VOLUME 500 ML
[2016-05-27 04:25] LABS: BUN (BLOOD UREA NITROGEN) 26 MG/DL (6-23); CALCIUM, SERUM 7.9 MG/DL (8.5-10.4); CHLORIDE, SERUM 106 MMOL/L (96-112); CO2 (CARBON DIOXIDE) 24 MMOL/L (24-34); CREATININE 0.83 MG/DL (0.70-1.30); GFR AFRICAN AMERICAN 117 ML/MIN (>=60); GFR NON AFRICAN AMERICAN 101 ML/MIN (>=60); GLUCOSE, SERUM 120 MG/DL (60-99); SODIUM, SERUM 140 MMOL/L (135-148)
[2016-05-27 05:04] LABS: PROCALCITONIN 6.06 ng/mL (<0.5)
[2016-05-28 05:31] LABS: BASOPHILS 0.2 %; BASOPHILS ABSOLUTE 0.01 10/3/uL (0.0-0.16); EOSINOPHILS 3.5 %; EOSINOPHILS ABSOLUTE 0.21 10/3/uL (0.0-0.53); HEMATOCRIT 35.7 % (40.0-51.0); HEMOGLOBIN 11.6 g/dL (13.6-17.8); IMMATURE GRANULOCYTES 0.8 %; IMMATURE GRANULOCYTES ABSOLUTE 0.05 10/3/uL (0.0-0.11); LYMPHOCYTES 15.3 %; LYMPHOCYTES ABSOLUTE 0.91 10/3/uL (0.67-4.30); MEAN CORPUS HGB CONC 32.5 g/dL (32.0-36.0); MEAN CORPUSCULAR HEMOGLOB 27.8 pg (26.0-34.0); MEAN CORPUSCULAR VOLUME 85.4 fL (80-100); MEAN PLATELET VOLUME 9.3 fL (9.2-13.0); NEUTROPHILS 75.2 %; NEUTROPHILS ABSOLUTE 4.48 10/3/uL (2.02-8.40); PLATELET COUNT 297 10/3/uL (150-400); RBC DISTRIBUTION WIDTH 13.9 % (12.0-16.0); RED CELL COUNT 4.18 10/6/uL (4.7-6.1)
[2016-05-28 05:33] LABS: MANUAL DIFF NO %
[2016-05-28 05:52] LABS: BUN (BLOOD UREA NITROGEN) 24 MG/DL (6-23); CHLORIDE, SERUM 105 MMOL/L (96-112); CO2 (CARBON DIOXIDE) 24 MMOL/L (24-34); POTASSIUM, SERUM 3.8 MMOL/L (3.5-5.3); SODIUM, SERUM 140 MMOL/L (135-148)
[2016-05-28 05:53] LABS: CALCIUM, SERUM 7.8 MG/DL (8.5-10.4); CREATININE 0.86 MG/DL (0.70-1.30); GFR AFRICAN AMERICAN 116 ML/MIN (>=60); GFR NON AFRICAN AMERICAN 100 ML/MIN (>=60); GLUCOSE, SERUM 133 MG/DL (60-99)
[2016-05-28 07:10] LABS: PROCALCITONIN 6.12 ng/mL (<0.5)
[2016-05-29 04:04] LABS: ALLENS TEST Pos; CARBOXYHEMOGLOBIN 0.5 % (0-3); HCO3 (ACTUAL BICARBONATE) 28.9 MEQ/L (23-27); HEMOBLOGIN CONTENT 12.7 G/DL (14-18); INSTRUMENT SERIAL # 8083; METHEMOGLOBIN 0.2 % (0-3); MODE CMV; O2 CONTENT 16.8 VOL% (18-24); OPERATOR ID 31061; PCO2 (CO2 TENSION) 40 MMHG (35-45); PO2 (O2 TENSION) 69 MMHG (79-93); SAMPLE Arterial; TIDAL VOLUME 500 ML; pH 7.48 (7.37-7.43)
[2016-05-29 05:33] LABS: BUN (BLOOD UREA NITROGEN) 21 MG/DL (6-23); CALCIUM, SERUM 7.6 MG/DL (8.5-10.4); CHLORIDE, SERUM 103 MMOL/L (96-112); CO2 (CARBON DIOXIDE) 28 MMOL/L (24-34); CREATININE 0.78 MG/DL (0.70-1.30); GFR AFRICAN AMERICAN 120 ML/MIN (>=60); GFR NON AFRICAN AMERICAN 104 ML/MIN (>=60); GLUCOSE, SERUM 148 MG/DL (60-99); POTASSIUM, SERUM 3.4 MMOL/L (3.5-5.3); SODIUM, SERUM 141 MMOL/L (135-148)
[2016-05-29 06:37] LABS: PROCALCITONIN 4.33 ng/mL (<0.5)
[2016-05-29 06:47] LABS: BASOPHILS 0.7 %; BASOPHILS ABSOLUTE 0.03 10/3/uL (0.0-0.16); EOSINOPHILS 4.7 %; EOSINOPHILS ABSOLUTE 0.21 10/3/uL (0.0-0.53); HEMATOCRIT 36.1 % (40.0-51.0); HEMOGLOBIN 11.5 g/dL (13.6-17.8); IMMATURE GRANULOCYTES 0.2 %; IMMATURE GRANULOCYTES ABSOLUTE 0.01 10/3/uL (0.0-0.11); LYMPHOCYTES 23.2 %; LYMPHOCYTES ABSOLUTE 1.03 10/3/uL (0.67-4.30); MANUAL DIFF NO %; MEAN CORPUS HGB CONC 31.9 g/dL (32.0-36.0); MEAN CORPUSCULAR HEMOGLOB 27.1 pg (26.0-34.0); MEAN CORPUSCULAR VOLUME 84.9 fL (80-100); MEAN PLATELET VOLUME 9.7 fL (9.2-13.0); MONOCYTES 7.7 %; MONOCYTES ABSOLUTE 0.34 10/3/uL (0.21-1.20); NEUTROPHILS 63.5 %; NEUTROPHILS ABSOLUTE 2.82 10/3/uL (2.02-8.40); PLATELET COUNT 335 10/3/uL (150-400); RBC DISTRIBUTION WIDTH 14.1 % (12.0-16.0); RED CELL COUNT 4.25 10/6/uL (4.7-6.1); WHITE BLOOD CELLS 4.4 10/3/uL (4.5-10.5)
[2016-05-30 05:47] LABS: HEMATOCRIT 37.7 % (40.0-51.0); HEMOGLOBIN 12.5 g/dL (13.6-17.8); MANUAL DIFF YES %; MEAN CORPUS HGB CONC 33.2 g/dL (32.0-36.0); MEAN CORPUSCULAR HEMOGLOB 28.6 pg (26.0-34.0); MEAN CORPUSCULAR VOLUME 86.3 fL (80-100); MEAN PLATELET VOLUME 10.1 fL (9.2-13.0); PLATELET COUNT 372 10/3/uL (150-400); RBC DISTRIBUTION WIDTH 13.7 % (12.0-16.0); RED CELL COUNT 4.37 10/6/uL (4.7-6.1); WHITE BLOOD CELLS 4.5 10/3/uL (4.5-10.5)
[2016-05-30 06:08] LABS: BAND NEUTROPHILS 1 %; EOSINOPHILS 3 %; EOSINOPHILS ABSOLUTE (CALC) 0.14 10/3/uL (0.0-0.53); LYMPHOCYTES 21 %; LYMPHOCYTES ABSOLUTE (CALC) 0.95 10/3/uL (0.67-4.30); MONOCYTES 5 %; MONOCYTES ABSOLUTE (CALC) 0.23 10/3/uL (0.21-1.20); SEGMENTED NEUTROPHIL (0) 70 %; TOTAL NUCLEATED CELLS 100
[2016-05-30 06:11] LABS: PLATELET ESTIMATE ADQ (ADEQUATE); RBC MORPHOLOGY NORM (NORMAL)
[2016-05-30 07:19] LABS: CALCIUM, SERUM 7.5 MG/DL (8.5-10.4); CHLORIDE, SERUM 105 MMOL/L (96-112); CO2 (CARBON DIOXIDE) 30 MMOL/L (24-34); CREATININE 0.72 MG/DL (0.70-1.30); GFR AFRICAN AMERICAN 124 ML/MIN (>=60); GFR NON AFRICAN AMERICAN 107 ML/MIN (>=60); GLUCOSE, SERUM 141 MG/DL (60-99); PHOSPHORUS, SERUM 2.4 MG/DL (2.5-4.5); POTASSIUM, SERUM 3.6 MMOL/L (3.5-5.3); SODIUM, SERUM 144 MMOL/L (135-148)
[2016-05-30 07:20] LABS: BUN (BLOOD UREA NITROGEN) 16 MG/DL (6-23)
[2016-05-30 18:21] LABS: METANEPHRINE [CALC] 0.314 mg/24h (0.052-0.341); TOTAL METANEPHRINES [CALC] 0.944 mg/24h (0.140-0.785)
[2016-05-31 05:11] LABS: BASOPHILS 0.7 %; BASOPHILS ABSOLUTE 0.04 10/3/uL (0.0-0.16); EOSINOPHILS 3.6 %; EOSINOPHILS ABSOLUTE 0.22 10/3/uL (0.0-0.53); HEMATOCRIT 34.9 % (40.0-51.0); HEMOGLOBIN 11.2 g/dL (13.6-17.8); IMMATURE GRANULOCYTES 0.2 %; IMMATURE GRANULOCYTES ABSOLUTE 0.01 10/3/uL (0.0-0.11); LYMPHOCYTES 21.6 %; MEAN CORPUS HGB CONC 32.1 g/dL (32.0-36.0); MEAN CORPUSCULAR HEMOGLOB 27.5 pg (26.0-34.0); MEAN CORPUSCULAR VOLUME 85.5 fL (80-100); MEAN PLATELET VOLUME 9.5 fL (9.2-13.0); MONOCYTES 11.4 %; MONOCYTES ABSOLUTE 0.69 10/3/uL (0.21-1.20); NEUTROPHILS 62.5 %; NEUTROPHILS ABSOLUTE 3.77 10/3/uL (2.02-8.40); PLATELET COUNT 370 10/3/uL (150-400); RBC DISTRIBUTION WIDTH 13.5 % (12.0-16.0); RED CELL COUNT 4.08 10/6/uL (4.7-6.1)
[2016-05-31 05:15] LABS: MANUAL DIFF NO %
[2016-05-31 05:32] LABS: ALBUMIN 1.7 G/DL (3.5-5.0); BUN (BLOOD UREA NITROGEN) 16 MG/DL (6-23); CALCIUM, SERUM 7.7 MG/DL (8.5-10.4); CHLORIDE, SERUM 104 MMOL/L (96-112); CO2 (CARBON DIOXIDE) 28 MMOL/L (24-34); CREATININE 0.68 MG/DL (0.70-1.30); GFR AFRICAN AMERICAN 127 ML/MIN (>=60); GFR NON AFRICAN AMERICAN 110 ML/MIN (>=60); PHOSPHORUS, SERUM 3.1 MG/DL (2.5-4.5); POTASSIUM, SERUM 3.8 MMOL/L (3.5-5.3); SODIUM, SERUM 142 MMOL/L (135-148)
[2016-05-31 05:38] LABS: GLUCOSE, SERUM 174 MG/DL (60-99)
[2016-06-01 04:28] LABS: BASOPHILS 0.7 %; BASOPHILS ABSOLUTE 0.03 10/3/uL (0.0-0.16); EOSINOPHILS 0.2 %; EOSINOPHILS ABSOLUTE 0.01 10/3/uL (0.0-0.53); HEMOGLOBIN 11.8 g/dL (13.6-17.8); IMMATURE GRANULOCYTES 0.5 %; IMMATURE GRANULOCYTES ABSOLUTE 0.02 10/3/uL (0.0-0.11); LYMPHOCYTES 22.2 %; LYMPHOCYTES ABSOLUTE 0.97 10/3/uL (0.67-4.30); MEAN CORPUS HGB CONC 31.9 g/dL (32.0-36.0); MEAN CORPUSCULAR HEMOGLOB 26.3 pg (26.0-34.0); MEAN PLATELET VOLUME 9.6 fL (9.2-13.0); MONOCYTES ABSOLUTE 0.22 10/3/uL (0.21-1.20); NEUTROPHILS 71.4 %; NEUTROPHILS ABSOLUTE 3.11 10/3/uL (2.02-8.40); PLATELET COUNT 456 10/3/uL (150-400); RED CELL COUNT 4.48 10/6/uL (4.7-6.1); WHITE BLOOD CELLS 4.4 10/3/uL (4.5-10.5)
[2016-06-01 04:38] LABS: MEAN CORPUSCULAR VOLUME 82.6 fL (80-100)
[2016-06-01 05:11] LABS: ALBUMIN 2.2 G/DL (3.5-5.0); BUN (BLOOD UREA NITROGEN) 20 MG/DL (6-23); CALCIUM, SERUM 8.4 MG/DL (8.5-10.4); CHLORIDE, SERUM 104 MMOL/L (96-112); CO2 (CARBON DIOXIDE) 28 MMOL/L (24-34); GFR AFRICAN AMERICAN 119 ML/MIN (>=60); GFR NON AFRICAN AMERICAN 103 ML/MIN (>=60); GLUCOSE, SERUM 306 MG/DL (60-99); SODIUM, SERUM 140 MMOL/L (135-148)
[2016-06-01 11:02] LABS: BUN (BLOOD UREA NITROGEN) 24 MG/DL (6-23); CALCIUM, SERUM 8.6 MG/DL (8.5-10.4); CHLORIDE, SERUM 100 MMOL/L (96-112); CO2 (CARBON DIOXIDE) 30 MMOL/L (24-34); CREATININE 0.82 MG/DL (0.70-1.30); GFR AFRICAN AMERICAN 118 ML/MIN (>=60); GFR NON AFRICAN AMERICAN 102 ML/MIN (>=60); GLUCOSE, SERUM 266 MG/DL (60-99); POTASSIUM, SERUM 5.1 MMOL/L (3.5-5.3); SODIUM, SERUM 139 MMOL/L (135-148)
[2016-06-02 04:39] LABS: ALKALINE PHOSPHATASE 99 U/L (45-117); BUN (BLOOD UREA NITROGEN) 25 MG/DL (6-23); CALCIUM, SERUM 8.7 MG/DL (8.5-10.4); CHLORIDE, SERUM 105 MMOL/L (96-112); CO2 (CARBON DIOXIDE) 28 MMOL/L (24-34); CREATININE 0.77 MG/DL (0.70-1.30); GFR AFRICAN AMERICAN 121 ML/MIN (>=60); GFR NON AFRICAN AMERICAN 104 ML/MIN (>=60); POTASSIUM, SERUM 4.4 MMOL/L (3.5-5.3); SGOT(AST) 27 U/L (5-40); SGPT(ALT) 36 U/L (5-65); SODIUM, SERUM 141 MMOL/L (135-148); TOTAL BILIRUBIN 0.5 MG/DL (0-1.2)
[2016-06-02 04:42] LABS: A/G RATIO 0.6 (0.7-1.9); GLOBULIN 4.9 G/DL (2.5-4.1); GLUCOSE, SERUM 163 MG/DL (60-99); TOTAL PROTEIN 7.9 G/DL (6.0-8.5)
[2016-06-02 05:41] LABS: BASOPHILS 0.4 %; BASOPHILS ABSOLUTE 0.03 10/3/uL (0.0-0.16); EOSINOPHILS 0 %; HEMOGLOBIN 13.9 g/dL (13.6-17.8); IMMATURE GRANULOCYTES 0.4 %; IMMATURE GRANULOCYTES ABSOLUTE 0.03 10/3/uL (0.0-0.11); LYMPHOCYTES 17.8 %; LYMPHOCYTES ABSOLUTE 1.47 10/3/uL (0.67-4.30); MEAN CORPUS HGB CONC 32.9 g/dL (32.0-36.0); MEAN PLATELET VOLUME 9.3 fL (9.2-13.0); MONOCYTES 7.1 %; MONOCYTES ABSOLUTE 0.59 10/3/uL (0.21-1.20); NEUTROPHILS 74.3 %; NEUTROPHILS ABSOLUTE 6.14 10/3/uL (2.02-8.40); RBC DISTRIBUTION WIDTH 13.3 % (12.0-16.0); RED CELL COUNT 4.97 10/6/uL (4.7-6.1)
[2016-06-02 05:46] LABS: HEMATOCRIT 42.3 % (40.0-51.0); MANUAL DIFF NO %; MEAN CORPUSCULAR VOLUME 85.1 fL (80-100); PLATELET COUNT 634 10/3/uL (150-400); WHITE BLOOD CELLS 8.3 10/3/uL (4.5-10.5)
[2016-06-02] MEDS ORDERED: COZ50 (18:49)
[2016-06-02] MEDS ORDERED: LOP25 PO (18:50)
[2016-06-03 05:31] LABS: ALBUMIN 2.6 G/DL (3.5-5.0); CALCIUM, SERUM 8.5 MG/DL (8.5-10.4); CHLORIDE, SERUM 105 MMOL/L (96-112); CO2 (CARBON DIOXIDE) 27 MMOL/L (24-34); GFR AFRICAN AMERICAN 113 ML/MIN (>=60); GFR NON AFRICAN AMERICAN 98 ML/MIN (>=60); GLUCOSE, SERUM 149 MG/DL (60-99); PHOSPHORUS, SERUM 2.9 MG/DL (2.5-4.5); POTASSIUM, SERUM 3.8 MMOL/L (3.5-5.3); SODIUM, SERUM 142 MMOL/L (135-148)
[2016-06-03 05:32] LABS: BUN (BLOOD UREA NITROGEN) 30 MG/DL (6-23)
[2016-06-04 05:31] LABS: BASOPHILS 0.3 %; BASOPHILS ABSOLUTE 0.03 10/3/uL (0.0-0.16); EOSINOPHILS 0.5 %; EOSINOPHILS ABSOLUTE 0.06 10/3/uL (0.0-0.53); HEMATOCRIT 40.5 % (40.0-51.0); HEMOGLOBIN 13.1 g/dL (13.6-17.8); IMMATURE GRANULOCYTES 0.6 %; IMMATURE GRANULOCYTES ABSOLUTE 0.07 10/3/uL (0.0-0.11); LYMPHOCYTES 20.8 %; LYMPHOCYTES ABSOLUTE 2.37 10/3/uL (0.67-4.30); MEAN CORPUS HGB CONC 32.3 g/dL (32.0-36.0); MEAN CORPUSCULAR HEMOGLOB 27.5 pg (26.0-34.0); MEAN CORPUSCULAR VOLUME 85.1 fL (80-100); MEAN PLATELET VOLUME 8.4 fL (9.2-13.0); MONOCYTES 9.1 %; MONOCYTES ABSOLUTE 1.04 10/3/uL (0.21-1.20); NEUTROPHILS 68.7 %; NEUTROPHILS ABSOLUTE 7.81 10/3/uL (2.02-8.40); PLATELET COUNT 472 10/3/uL (150-400); RBC DISTRIBUTION WIDTH 13.7 % (12.0-16.0); RED CELL COUNT 4.76 10/6/uL (4.7-6.1); WHITE BLOOD CELLS 11.4 10/3/uL (4.5-10.5)
[2016-06-04 05:33] LABS: MANUAL DIFF NO %
[2016-06-04 05:41] LABS: BUN (BLOOD UREA NITROGEN) 23 MG/DL (6-23); CALCIUM, SERUM 8.6 MG/DL (8.5-10.4); CHLORIDE, SERUM 108 MMOL/L (96-112); CO2 (CARBON DIOXIDE) 25 MMOL/L (24-34); CREATININE 0.79 MG/DL (0.70-1.30); GFR AFRICAN AMERICAN 120 ML/MIN (>=60); GFR NON AFRICAN AMERICAN 103 ML/MIN (>=60); GLUCOSE, SERUM 131 MG/DL (60-99); PHOSPHORUS, SERUM 3.8 MG/DL (2.5-4.5); POTASSIUM, SERUM 4.1 MMOL/L (3.5-5.3); SODIUM, SERUM 142 MMOL/L (135-148)
[2016-06-05 05:56] LABS: BUN (BLOOD UREA NITROGEN) 21 MG/DL (6-23); CALCIUM, SERUM 8.5 MG/DL (8.5-10.4); CHLORIDE, SERUM 105 MMOL/L (96-112); CO2 (CARBON DIOXIDE) 23 MMOL/L (24-34); CREATININE 0.83 MG/DL (0.70-1.30); GFR AFRICAN AMERICAN 117 ML/MIN (>=60); GFR NON AFRICAN AMERICAN 101 ML/MIN (>=60); GLUCOSE, SERUM 128 MG/DL (60-99); POTASSIUM, SERUM 3.8 MMOL/L (3.5-5.3); SODIUM, SERUM 138 MMOL/L (135-148)
[2016-06-05 06:00] LABS: HEMATOCRIT 42.6 % (40.0-51.0); HEMOGLOBIN 14.2 g/dL (13.6-17.8); MEAN CORPUS HGB CONC 33.3 g/dL (32.0-36.0); MEAN CORPUSCULAR HEMOGLOB 27.3 pg (26.0-34.0); MEAN PLATELET VOLUME 8.8 fL (9.2-13.0); PLATELET COUNT 427 10/3/uL (150-400); RBC DISTRIBUTION WIDTH 13.9 % (12.0-16.0); RED CELL COUNT 5.21 10/6/uL (4.7-6.1)
[2016-06-05 06:01] LABS: MANUAL DIFF YES %; MEAN CORPUSCULAR VOLUME 81.8 fL (80-100)
[2016-06-05 06:22] LABS: BAND NEUTROPHILS 2 %; LYMPHOCYTES 6 %; LYMPHOCYTES ABSOLUTE (CALC) 1.38 10/3/uL (0.67-4.30); MONOCYTES 8 %; MONOCYTES ABSOLUTE (CALC) 1.84 10/3/uL (0.21-1.20); NEUTROPHILS ABSOLUTE (CALC) 19.78 10/3/uL (2.02-8.40); SEGMENTED NEUTROPHIL (0) 84 %; TOTAL NUCLEATED CELLS 100
[2016-06-05 06:23] LABS: PLATELET ESTIMATE INC (ADEQUATE); RBC MORPHOLOGY NORM (NORMAL)
[2016-06-05 12:08] LABS: PROCALCITONIN 0.27 ng/mL (<0.5)
[2016-06-06 05:05] LABS: BASOPHILS 0.1 %; BASOPHILS ABSOLUTE 0.02 10/3/uL (0.0-0.16); EOSINOPHILS 0.1 %; EOSINOPHILS ABSOLUTE 0.03 10/3/uL (0.0-0.53); HEMATOCRIT 38.4 % (40.0-51.0); IMMATURE GRANULOCYTES 0.6 %; IMMATURE GRANULOCYTES ABSOLUTE 0.13 10/3/uL (0.0-0.11); LYMPHOCYTES 11.7 %; LYMPHOCYTES ABSOLUTE 2.42 10/3/uL (0.67-4.30); MEAN CORPUS HGB CONC 33.9 g/dL (32.0-36.0); MEAN CORPUSCULAR VOLUME 82.6 fL (80-100); MEAN PLATELET VOLUME 8.7 fL (9.2-13.0); MONOCYTES 7.4 %; MONOCYTES ABSOLUTE 1.53 10/3/uL (0.21-1.20); NEUTROPHILS 80.1 %; NEUTROPHILS ABSOLUTE 16.52 10/3/uL (2.02-8.40); PLATELET COUNT 342 10/3/uL (150-400); RED CELL COUNT 4.65 10/6/uL (4.7-6.1); WHITE BLOOD CELLS 20.7 10/3/uL (4.5-10.5)
[2016-06-06 05:07] LABS: MANUAL DIFF NO %
[2016-06-06 05:24] LABS: BUN (BLOOD UREA NITROGEN) 18 MG/DL (6-23); CALCIUM, SERUM 8.5 MG/DL (8.5-10.4); CHLORIDE, SERUM 103 MMOL/L (96-112); CO2 (CARBON DIOXIDE) 22 MMOL/L (24-34); CREATININE 0.64 MG/DL (0.70-1.30); GFR AFRICAN AMERICAN 130 ML/MIN (>=60); GFR NON AFRICAN AMERICAN 113 ML/MIN (>=60); GLUCOSE, SERUM 130 MG/DL (60-99); POTASSIUM, SERUM 4.3 MMOL/L (3.5-5.3); SODIUM, SERUM 135 MMOL/L (135-148)
[2016-06-06 06:30] LABS: PROCALCITONIN 0.76 ng/mL (<0.5)
[2016-06-07 10:12] LABS: BASOPHILS 0.1 %; BASOPHILS ABSOLUTE 0.02 10/3/uL (0.0-0.16); EOSINOPHILS 0.1 %; EOSINOPHILS ABSOLUTE 0.01 10/3/uL (0.0-0.53); IMMATURE GRANULOCYTES 0.5 %; LYMPHOCYTES 13.6 %; LYMPHOCYTES ABSOLUTE 2.68 10/3/uL (0.67-4.30); MEAN CORPUS HGB CONC 33.3 g/dL (32.0-36.0); MEAN CORPUSCULAR HEMOGLOB 27.7 pg (26.0-34.0); MEAN CORPUSCULAR VOLUME 83.2 fL (80-100); MEAN PLATELET VOLUME 9.3 fL (9.2-13.0); MONOCYTES 8.5 %; MONOCYTES ABSOLUTE 1.68 10/3/uL (0.21-1.20); NEUTROPHILS 77.2 %; PLATELET COUNT 378 10/3/uL (150-400); RED CELL COUNT 4.69 10/6/uL (4.7-6.1); WHITE BLOOD CELLS 19.7 10/3/uL (4.5-10.5)
[2016-06-07 10:13] LABS: MANUAL DIFF NO %
[2016-06-07 10:45] LABS: A/G RATIO 0.5 (0.7-1.9); ALBUMIN 2.4 G/DL (3.5-5.0); ALKALINE PHOSPHATASE 112 U/L (45-117); BUN (BLOOD UREA NITROGEN) 21 MG/DL (6-23); CALCIUM, SERUM 8.6 MG/DL (8.5-10.4); CHLORIDE, SERUM 101 MMOL/L (96-112); CO2 (CARBON DIOXIDE) 23 MMOL/L (24-34); CREATININE 0.76 MG/DL (0.70-1.30); GFR AFRICAN AMERICAN 122 ML/MIN (>=60); GFR NON AFRICAN AMERICAN 105 ML/MIN (>=60); GLUCOSE, SERUM 127 MG/DL (60-99); POTASSIUM, SERUM 4.5 MMOL/L (3.5-5.3); SGOT(AST) 59 U/L (5-40); SGPT(ALT) 70 U/L (5-65); SODIUM, SERUM 136 MMOL/L (135-148); TOTAL PROTEIN 7.4 G/DL (6.0-8.5)
[2016-06-07 11:04] LABS: PROCALCITONIN 1.21 ng/mL (<0.5)
[2016-06-08 04:18] LABS: BASOPHILS 0.1 %; BASOPHILS ABSOLUTE 0.02 10/3/uL (0.0-0.16); EOSINOPHILS 0.1 %; EOSINOPHILS ABSOLUTE 0.02 10/3/uL (0.0-0.53); HEMATOCRIT 39.8 % (40.0-51.0); HEMOGLOBIN 13.3 g/dL (13.6-17.8); IMMATURE GRANULOCYTES 0.5 %; IMMATURE GRANULOCYTES ABSOLUTE 0.07 10/3/uL (0.0-0.11); LYMPHOCYTES 21.6 %; LYMPHOCYTES ABSOLUTE 3.02 10/3/uL (0.67-4.30); MEAN CORPUS HGB CONC 33.4 g/dL (32.0-36.0); MEAN CORPUSCULAR HEMOGLOB 28.1 pg (26.0-34.0); MEAN PLATELET VOLUME 9.2 fL (9.2-13.0); MONOCYTES 10.9 %; MONOCYTES ABSOLUTE 1.52 10/3/uL (0.21-1.20); NEUTROPHILS 66.8 %; NEUTROPHILS ABSOLUTE 9.31 10/3/uL (2.02-8.40); PLATELET COUNT 350 10/3/uL (150-400); RED CELL COUNT 4.74 10/6/uL (4.7-6.1)
[2016-06-08 04:24] LABS: MANUAL DIFF NO %
[2016-06-08 04:26] LABS: BUN (BLOOD UREA NITROGEN) 22 MG/DL (6-23); CALCIUM, SERUM 8.8 MG/DL (8.5-10.4); CHLORIDE, SERUM 101 MMOL/L (96-112); CO2 (CARBON DIOXIDE) 24 MMOL/L (24-34); CREATININE 0.72 MG/DL (0.70-1.30); GFR AFRICAN AMERICAN 124 ML/MIN (>=60); GFR NON AFRICAN AMERICAN 107 ML/MIN (>=60); GLUCOSE, SERUM 113 MG/DL (60-99); POTASSIUM, SERUM 4.2 MMOL/L (3.5-5.3); SODIUM, SERUM 136 MMOL/L (135-148)
[2016-06-08 05:27] LABS: PROCALCITONIN 0.85 ng/mL (<0.5)
[2016-06-09 04:48] LABS: ALBUMIN 2.1 G/DL (3.5-5.0); ALKALINE PHOSPHATASE 120 U/L (45-117); BUN (BLOOD UREA NITROGEN) 20 MG/DL (6-23); CALCIUM, SERUM 9.1 MG/DL (8.5-10.4); CHLORIDE, SERUM 97 MMOL/L (96-112); CO2 (CARBON DIOXIDE) 27 MMOL/L (24-34); CREATININE 0.74 MG/DL (0.70-1.30); DIRECT BILIRUBIN 0.3 MG/DL (0.0-0.4); GFR AFRICAN AMERICAN 123 ML/MIN (>=60); GFR NON AFRICAN AMERICAN 106 ML/MIN (>=60); GLUCOSE, SERUM 109 MG/DL (60-99); INDIRECT BILIRUBIN(NOT ORDER) 0.6 MG/DL (0.1-0.9); PHOSPHORUS, SERUM 3.8 MG/DL (2.5-4.5); SGOT(AST) 80 U/L (5-40); SGPT(ALT) 110 U/L (5-65); SODIUM, SERUM 137 MMOL/L (135-148); TOTAL BILIRUBIN 0.9 MG/DL (0-1.2); TOTAL PROTEIN 7.2 G/DL (6.0-8.5)
[2016-06-09 05:28] LABS: BASOPHILS 0.2 %; BASOPHILS ABSOLUTE 0.03 10/3/uL (0.0-0.16); EOSINOPHILS 0.8 %; HEMATOCRIT 37.2 % (40.0-51.0); IMMATURE GRANULOCYTES 0.1 %; IMMATURE GRANULOCYTES ABSOLUTE 0.01 10/3/uL (0.0-0.11); LYMPHOCYTES 21.3 %; LYMPHOCYTES ABSOLUTE 2.59 10/3/uL (0.67-4.30); MEAN CORPUS HGB CONC 32.3 g/dL (32.0-36.0); MEAN CORPUSCULAR HEMOGLOB 26.5 pg (26.0-34.0); MEAN CORPUSCULAR VOLUME 82.3 fL (80-100); MEAN PLATELET VOLUME 9.4 fL (9.2-13.0); MONOCYTES 12.9 %; MONOCYTES ABSOLUTE 1.57 10/3/uL (0.21-1.20); NEUTROPHILS 64.7 %; NEUTROPHILS ABSOLUTE 7.85 10/3/uL (2.02-8.40); PLATELET COUNT 424 10/3/uL (150-400); RBC DISTRIBUTION WIDTH 14.1 % (12.0-16.0); RED CELL COUNT 4.52 10/6/uL (4.7-6.1); WHITE BLOOD CELLS 12.2 10/3/uL (4.5-10.5)
[2016-06-09 05:29] LABS: MANUAL DIFF NO %
[2016-06-09 10:29] LABS: PROCALCITONIN 0.65 ng/mL (<0.5)
[2016-06-09] MEDS ORDERED: LAMICTAL25 PO (17:10)
[2016-06-09] MEDS ORDERED: PERCOCET 10/3251 TAB PO (17:10)
[2016-06-09] MEDS ORDERED: ABILIFY2 PO (17:11)
[2016-06-09] MEDS ORDERED: CETIRIZINE HCL5 MG PO (17:11)
[2016-06-10 06:11] LABS: BUN (BLOOD UREA NITROGEN) 17 MG/DL (6-23); CHLORIDE, SERUM 96 MMOL/L (96-112); CO2 (CARBON DIOXIDE) 28 MMOL/L (24-34); CREATININE 0.82 MG/DL (0.70-1.30); GFR AFRICAN AMERICAN 118 ML/MIN (>=60); GFR NON AFRICAN AMERICAN 102 ML/MIN (>=60); GLUCOSE, SERUM 104 MG/DL (60-99); POTASSIUM, SERUM 4.1 MMOL/L (3.5-5.3); SODIUM, SERUM 133 MMOL/L (135-148)
[2016-06-10 06:47] LABS: BASOPHILS 0.3 %; BASOPHILS ABSOLUTE 0.04 10/3/uL (0.0-0.16); EOSINOPHILS 0.7 %; EOSINOPHILS ABSOLUTE 0.08 10/3/uL (0.0-0.53); HEMATOCRIT 37.8 % (40.0-51.0); HEMOGLOBIN 12.4 g/dL (13.6-17.8); IMMATURE GRANULOCYTES 0.4 %; IMMATURE GRANULOCYTES ABSOLUTE 0.05 10/3/uL (0.0-0.11); LYMPHOCYTES ABSOLUTE 2.45 10/3/uL (0.67-4.30); MANUAL DIFF NO %; MEAN CORPUS HGB CONC 32.8 g/dL (32.0-36.0); MEAN CORPUSCULAR HEMOGLOB 27.1 pg (26.0-34.0); MEAN CORPUSCULAR VOLUME 82.7 fL (80-100); MEAN PLATELET VOLUME 9.4 fL (9.2-13.0); MONOCYTES ABSOLUTE 1.52 10/3/uL (0.21-1.20); NEUTROPHILS 64.6 %; NEUTROPHILS ABSOLUTE 7.53 10/3/uL (2.02-8.40); PLATELET COUNT 376 10/3/uL (150-400); RBC DISTRIBUTION WIDTH 13.8 % (12.0-16.0); RED CELL COUNT 4.57 10/6/uL (4.7-6.1); WHITE BLOOD CELLS 11.7 10/3/uL (4.5-10.5)
[2016-06-11 05:21] LABS: BASOPHILS 0.3 %; BASOPHILS ABSOLUTE 0.03 10/3/uL (0.0-0.16); EOSINOPHILS ABSOLUTE 0.11 10/3/uL (0.0-0.53); HEMATOCRIT 36.4 % (40.0-51.0); HEMOGLOBIN 11.9 g/dL (13.6-17.8); IMMATURE GRANULOCYTES 0.5 %; IMMATURE GRANULOCYTES ABSOLUTE 0.05 10/3/uL (0.0-0.11); LYMPHOCYTES 23.9 %; LYMPHOCYTES ABSOLUTE 2.57 10/3/uL (0.67-4.30); MEAN CORPUS HGB CONC 32.7 g/dL (32.0-36.0); MEAN CORPUSCULAR HEMOGLOB 26.7 pg (26.0-34.0); MEAN CORPUSCULAR VOLUME 81.6 fL (80-100); MEAN PLATELET VOLUME 9.4 fL (9.2-13.0); MONOCYTES 10.9 %; MONOCYTES ABSOLUTE 1.17 10/3/uL (0.21-1.20); NEUTROPHILS 63.4 %; NEUTROPHILS ABSOLUTE 6.82 10/3/uL (2.02-8.40); PLATELET COUNT 393 10/3/uL (150-400); RBC DISTRIBUTION WIDTH 13.9 % (12.0-16.0); RED CELL COUNT 4.46 10/6/uL (4.7-6.1); WHITE BLOOD CELLS 10.8 10/3/uL (4.5-10.5)
[2016-06-11 05:23] LABS: MANUAL DIFF NO %
[2016-06-11 05:28] LABS: BUN (BLOOD UREA NITROGEN) 15 MG/DL (6-23); CHLORIDE, SERUM 94 MMOL/L (96-112); CO2 (CARBON DIOXIDE) 29 MMOL/L (24-34); GFR AFRICAN AMERICAN 119 ML/MIN (>=60); GFR NON AFRICAN AMERICAN 103 ML/MIN (>=60); GLUCOSE, SERUM 107 MG/DL (60-99); PHOSPHORUS, SERUM 3.2 MG/DL (2.5-4.5); POTASSIUM, SERUM 3.9 MMOL/L (3.5-5.3); SODIUM, SERUM 132 MMOL/L (135-148)
[2016-06-12 13:57] LABS: BASOPHILS 0.4 %; BASOPHILS ABSOLUTE 0.04 10/3/uL (0.0-0.16); EOSINOPHILS 1.3 %; EOSINOPHILS ABSOLUTE 0.14 10/3/uL (0.0-0.53); HEMATOCRIT 36.5 % (40.0-51.0); HEMOGLOBIN 12.1 g/dL (13.6-17.8); IMMATURE GRANULOCYTES 0.6 %; IMMATURE GRANULOCYTES ABSOLUTE 0.07 10/3/uL (0.0-0.11); LYMPHOCYTES 24.7 %; LYMPHOCYTES ABSOLUTE 2.67 10/3/uL (0.67-4.30); MANUAL DIFF NO %; MEAN CORPUS HGB CONC 33.2 g/dL (32.0-36.0); MEAN CORPUSCULAR HEMOGLOB 27.3 pg (26.0-34.0); MEAN CORPUSCULAR VOLUME 82.4 fL (80-100); MEAN PLATELET VOLUME 9.2 fL (9.2-13.0); MONOCYTES 8.7 %; MONOCYTES ABSOLUTE 0.94 10/3/uL (0.21-1.20); NEUTROPHILS 64.3 %; NEUTROPHILS ABSOLUTE 6.97 10/3/uL (2.02-8.40); PLATELET COUNT 446 10/3/uL (150-400); RBC DISTRIBUTION WIDTH 13.7 % (12.0-16.0); RED CELL COUNT 4.43 10/6/uL (4.7-6.1); WHITE BLOOD CELLS 10.8 10/3/uL (4.5-10.5)
[2016-06-12 14:14] LABS: A/G RATIO 0.5 (0.7-1.9); ALBUMIN 2.5 G/DL (3.5-5.0); ALKALINE PHOSPHATASE 157 U/L (45-117); BUN (BLOOD UREA NITROGEN) 15 MG/DL (6-23); CALCIUM, SERUM 8.8 MG/DL (8.5-10.4); CHLORIDE, SERUM 94 MMOL/L (96-112); CO2 (CARBON DIOXIDE) 30 MMOL/L (24-34); CREATININE 0.84 MG/DL (0.70-1.30); GFR AFRICAN AMERICAN 117 ML/MIN (>=60); GFR NON AFRICAN AMERICAN 101 ML/MIN (>=60); GLOBULIN 4.8 G/DL (2.5-4.1); GLUCOSE, SERUM 99 MG/DL (60-99); POTASSIUM, SERUM 4.2 MMOL/L (3.5-5.3); SGOT(AST) 146 U/L (5-40); SGPT(ALT) 227 U/L (5-65); SODIUM, SERUM 134 MMOL/L (135-148); TOTAL BILIRUBIN 0.4 MG/DL (0-1.2); TOTAL PROTEIN 7.3 G/DL (6.0-8.5)
[2016-06-12] MEDS ORDERED: BACDS PO (16:24)
[2016-06-13 08:23] LABS: BASOPHILS 0.3 %; BASOPHILS ABSOLUTE 0.02 10/3/uL (0.0-0.16); EOSINOPHILS ABSOLUTE 0.13 10/3/uL (0.0-0.53); HEMATOCRIT 33.3 % (40.0-51.0); HEMOGLOBIN 10.7 g/dL (13.6-17.8); IMMATURE GRANULOCYTES 0.8 %; IMMATURE GRANULOCYTES ABSOLUTE 0.05 10/3/uL (0.0-0.11); LYMPHOCYTES 29.2 %; LYMPHOCYTES ABSOLUTE 1.93 10/3/uL (0.67-4.30); MEAN CORPUS HGB CONC 32.1 g/dL (32.0-36.0); MEAN CORPUSCULAR HEMOGLOB 26.6 pg (26.0-34.0); MEAN CORPUSCULAR VOLUME 82.8 fL (80-100); MONOCYTES 11.8 %; MONOCYTES ABSOLUTE 0.78 10/3/uL (0.21-1.20); NEUTROPHILS 55.9 %; PLATELET COUNT 365 10/3/uL (150-400); RBC DISTRIBUTION WIDTH 13.9 % (12.0-16.0); RED CELL COUNT 4.02 10/6/uL (4.7-6.1); WHITE BLOOD CELLS 6.6 10/3/uL (4.5-10.5)
[2016-06-13 08:28] LABS: MANUAL DIFF NO %
[2016-06-13 08:40] LABS: A/G RATIO 0.5 (0.7-1.9); ALBUMIN 2.2 G/DL (3.5-5.0); BUN (BLOOD UREA NITROGEN) 12 MG/DL (6-23); CALCIUM, SERUM 8.5 MG/DL (8.5-10.4); CHLORIDE, SERUM 95 MMOL/L (96-112); CO2 (CARBON DIOXIDE) 31 MMOL/L (24-34); CREATININE 0.84 MG/DL (0.70-1.30); GFR AFRICAN AMERICAN 117 ML/MIN (>=60); GFR NON AFRICAN AMERICAN 101 ML/MIN (>=60); GLOBULIN 4.5 G/DL (2.5-4.1); GLUCOSE, SERUM 115 MG/DL (60-99); POTASSIUM, SERUM 3.4 MMOL/L (3.5-5.3); SGOT(AST) 112 U/L (5-40); SGPT(ALT) 201 U/L (5-65); SODIUM, SERUM 135 MMOL/L (135-148); TOTAL PROTEIN 6.7 G/DL (6.0-8.5)
[2016-06-13 08:43] LABS: ALKALINE PHOSPHATASE 134 U/L (45-117); DIRECT BILIRUBIN 0.1 MG/DL (0.0-0.4)
[2016-06-13 09:29] LABS: INDIRECT BILIRUBIN(NOT ORDER) 0.2 MG/DL (0.1-0.9); TOTAL BILIRUBIN 0.3 MG/DL (0-1.2)
== END 2016-06-13 12:22 | disposition home or self-care (01) | DRG 919 ==
LOC: ER 16:01 → 3SO 22:51 → SDC/OF 05-18 10:26 → PACU 05-18 11:46 → MIC 05-18 14:09 → 3SO 06-10 18:35
PROVIDERS: Emergency Medicine; Internal Medicine; Internal Medicine Critical Care Medicine; Internal Medicine Infectious Disease; Internal Medicine Pulmonary Disease; Nurse Practitioner Family; Orthopaedic Surgery
PROC: 0BB18ZX Excision of Trachea, Via Natural or Artificial Opening Endoscopic, Diagnostic (ICD-10-PCS; 2016-05-18)
PROC: 0JC40ZZ Extirpation of Matter from Right Neck Subcutaneous Tissue and Fascia, Open Approach (ICD-10-PCS; 2016-05-18)
PROC: 5A1945Z Respiratory Ventilation, 24-96 Consecutive Hours (ICD-10-PCS; 2016-05-20)
PROC: 0BH18EZ Insertion of Endotracheal Airway into Trachea, Via Natural or Artificial Opening Endoscopic (ICD-10-PCS; 2016-05-20)
PROC: 02HV33Z Insertion of Infusion Device into Superior Vena Cava, Percutaneous Approach (ICD-10-PCS; 2016-05-20)
PROC: 4A02X4A Measurement of Cardiac Electrical Activity, Guidance, External Approach (ICD-10-PCS; 2016-05-20)
PROC: 0BH18EZ Insertion of Endotracheal Airway into Trachea, Via Natural or Artificial Opening Endoscopic (ICD-10-PCS; principal; 2016-05-22)
DX: J95.860 Postprocedural hematoma of a respiratory system organ or structure following a respiratory system procedure (principal); J95.821 Acute postprocedural respiratory failure; J15.8 Pneumonia due to other specified bacteria; J43.9 Emphysema, unspecified; R13.19 Other dysphagia; I10 Essential (primary) hypertension; F32.9 Major depressive disorder, single episode, unspecified; Z88.5 Allergy status to narcotic agent; Z88.8 Allergy status to other drugs, medicaments and biological substances; Z79.899 Other long term (current) drug therapy; Z87.891 Personal history of nicotine dependence; Z82.49 Family history of ischemic heart disease and other diseases of the circulatory system; Z88.1 Allergy status to other antibiotic agents; J44.9 Chronic obstructive pulmonary disease, unspecified
CPT/HCPCS: 31720; 36569; 36600; 70490; 71010; 71250; 74000; 74230; 80048; 80053; 80069; 80076; 80200; 80202; 81001; 82248; 82330; 82384; 82533; 82803; 82805; 82947; 82962; 83497; 83735; 83835; 83880; 84100; 84132; 84145; 84295; 84585; 85014; 85025; 87040; 87070; 87077; 87186; 87205; 87389; 87493; 87493-59; 87641; 92610-GN; 92611-GN; 93005; 93975; 94002; 94003; 94640; 94660; 94770; 96374; 96523; 97110-GO; 97110-GP; 97116-GP; 97163-GP; 97167-GO; 97530-GO; 97530-GP; 97535-GO; 99285; A9270-GY; C1751; C9113; G0463; G8996-CJ-GN; G8996-CK-GN; G8996-CN-GN; G8997-CJ-GN; G8997-CK-GN; G8997-CN-GN; G8998-CJ-GN; G8998-CK-GN; G8998-CN-GN; J0330; J0360; J0713; J1170; J1450; J1940; J1956; J2020; J2185; J2250; J2370; J2405; J2543; J2920; J3010; J3260; J3360; J3370; P9047